=== PATIENT | male | born 1985 | race Caucasian/White ===

== ENCOUNTER 2019-06-19 09:23 | Day surgery (SDC) | payer SELFPAY ==
[2019-06-19] MEDS ORDERED: ACETAMINOPHEN 325 MG TABLET PO ONE (09:39)
[2019-06-19] MEDS ORDERED: RINGERS LACTATED IV ONE (09:39)
--- NOTE | 2019-06-19 09:41 | ER Document Report ---
ED Medical Screen (RME) - General Chief Complaint: Knee Pain Stated Complaint: KNEE PAIN Time Seen by Provider: 06/19/19 09:39 Primary Care Provider: ROSIBEL GIBBONS MD [Primary Care Provider] - Follow up as needed Mode of Arrival: Wheelchair Information source: Patient Notes: 33-year-old male presented to ED for complaint of right groin pain times a month. He states it is been very sore and inflamed for about a month and then this morning he woke up with his right knee very large red swollen and hot to the touch. He states he has not done anything to injure himself. He does have tachycardia with hypotension. He does appear to have a septic joint. Blood work and x-ray have been ordered. I have greeted and performed a rapid initial assessment of this patient. A comprehensive ED assessment and evaluation of the patient, analysis of test results and completion of medical decision making process will be conducted by an additional ED providers. TRAVEL OUTSIDE OF THE [place] IN LAST 30 DAYS: No - Related Data Allergies/Adverse Reactions: amoxicillin trihydrate [From Augmentin] Allergy (Verified 03/23/15 00:27) Potassium Clavulanate * [From Augmentin] Allergy (Verified 03/23/15 00:27) Past Medical History - Social History Chew tobacco use (# tins/day): No Frequency of alcohol use: None Drug Abuse: None Traumatic Medical History: Reports: Hx Fractures - hand Past Surgical History: Reports: Hx Myringotomy - child root, Hx Orthopedic Surgery - Immunizations Hx Diphtheria, Pertussis, Tetanus Vaccination: Yes Physical Exam - Vital signs Vitals: Temp Pulse Resp BP Pulse Ox 99.7 F 123 H 18 93/60 L 100 06/19/19 09:27 06/19/19 09:27 06/19/19 09:27 06/19/19 09:27 06/19/19 09:27 Course - Vital Signs Vital signs: Temp Pulse Resp BP Pulse Ox 99.7 F 123 H 18 93/60 L 100 06/19/19 09:27 06/19/19 09:27 06/19/19 09:27 06/19/19 09:27 06/19/19 09:27 Doctor's Discharge - Discharge Referrals: ROSIBEL GIBBONS MD [Primary Care Provider] - Follow up as needed
--- NOTE | 2019-06-19 10:07 | ER Document Report ---
ED Extremity Problem, Lower - General Chief Complaint: Knee Pain Stated Complaint: KNEE PAIN Time Seen by Provider: 06/19/19 09:39 Primary Care Provider: ROSIBEL GIBBONS MD [PEDIATRICS] - Follow up as needed SHANICE CHAMPION MD [ACTIVE PROVISIONAL STAFF] - Follow up as needed (CALL FOR FOLLOW UP APPOINTMENT) Mode of Arrival: Wheelchair TRAVEL OUTSIDE OF THE [place] IN LAST 30 DAYS: No - HPI Notes: This is a 33-year-old gentleman who presents today with a complaint of right knee pain and swelling that started this morning. Patient denies any trauma. He states he was fine yesterday, woke up this morning he noticed his right knee was swollen. He denies drug use. Pain is worse with bending of his knee. He denies any recent illness. He states he felt like he had a fever this morning. Describes symptoms as moderate. - Related Data Allergies/Adverse Reactions: amoxicillin trihydrate [From Augmentin] Allergy (Verified 03/23/15 00:27) Potassium Clavulanate * [From Augmentin] Allergy (Verified 03/23/15 00:27) Past Medical History - General Information source: Patient - Social History Smoking Status: Current Every Day Smoker Chew tobacco use (# tins/day): No Frequency of alcohol use: None Drug Abuse: None Family History: Reviewed & Not Pertinent Patient has suicidal ideation: No Patient has homicidal ideation: No Traumatic Medical History: Reports: Hx Fractures - hand Past Surgical History: Reports: Hx Myringotomy - child root, Hx Orthopedic Surgery - Immunizations Hx Diphtheria, Pertussis, Tetanus Vaccination: Yes Review of Systems - Review of Systems Constitutional: Fever Cardiovascular: denies: Chest pain, Palpitations Respiratory: denies: Cough, Short of breath Gastrointestinal: denies: Abdominal pain Musculoskeletal: Joint pain, Joint swelling -: Yes All other systems reviewed and negative Physical Exam - Vital signs Vitals: Temp Pulse Resp BP Pulse Ox 99.7 F 123 H 18 93/60 L 100 06/19/19 09:27 06/19/19 09:27 06/19/19 09:27 06/19/19 09:27 06/19/19 09:27 - General General appearance: Appears well, Alert - Respiratory Respiratory status: No respiratory distress Chest status: Nontender Breath sounds: Normal Chest palpation: Normal - Cardiovascular Rhythm: Regular Heart sounds: Normal auscultation Murmur: No - Abdominal Inspection: Normal Distension: No distension Bowel sounds: Normal Tenderness: Nontender Organomegaly: No organomegaly - Extremities General upper extremity: Normal inspection, Nontender, Normal color, Normal ROM, Normal temperature General lower extremity: No: Ramana's sign Knee: Tender - There is significant swelling, erythema and effusion of the right knee. It is warm to touch. There is pain with bending of the knee. Normal distal neurovascular exam of the right lower extremity. - Neurological Neuro grossly intact: Yes Cognition: Normal Orientation: AAOx4 Tracy Coma Scale Eye Opening: Spontaneous Tracy Coma Scale Verbal: Oriented Tracy Coma Scale Motor: Obeys Commands Tracy Coma Scale Total: 15 Speech: Normal Motor strength normal: LUE, RUE, LLE, RLE Sensory: Normal - Psychological Associated symptoms: Normal affect, Normal mood Course - Re-evaluation Re-evalutation: 06/19/19 10:09 Clinically patient is concerning for right knee septic arthritis versus cellulitis of the right knee. Differential diagnosis includes prepatellar bursitis. Patient was hypotensive and tachycardic so need to rule out early septicemia. 06/19/19 11:31 Right knee arthrocentesis done. I got very minimal bloody fluid. However, have a high clinical suspicion for septic arthritis. Will empirically start vancomycin. 06/19/19 12:13 Patient's care discussed with Dr. Champion. Will take patient to the OR. 06/19/19 13:02 - Vital Signs Vital signs: Temp Pulse Resp BP Pulse Ox 99.8 F 92 18 99/55 L 100 06/19/19 11:50 06/19/19 17:40 06/19/19 17:40 06/19/19 17:40 06/19/19 17:40 - Laboratory Result Diagrams: 06/19/19 10:00 06/19/19 10:00 Laboratory results interpreted by me: 06/19/19 06/19/19 10:00 10:00 WBC 18.9 H RBC 4.30 L Hgb 13.1 L Seg Neuts % (Manual) 87 H Lymphocytes % (Manual) 4 L Abs Neuts (Manual) 17.4 H Sodium 136.8 L Procedures - Joint Aspiration Right Knee Time completed: 11:31 Consent obtained: Yes Joint aspiration pre-procedure: Sterile PPE donned, Betadine prep applied, Sterile drapes applied Anesthetic type: 1% Lidocaine Needle size: 18 Amount/type of drainage: Small bloody drainage. Difficult to obtain. Number of attempts: 2 Complications: No Discharge - Discharge Clinical Impression: Prepatellar bursitis of right knee Cellulitis Qualifiers: Site of cellulitis: extremity Site of cellulitis of extremity: lower extremity Laterality: right Qualified Code(s): L03.115 - Cellulitis of right lower limb Condition: Stable Disposition: ADMITTED INPATIENT Admitting Provider: Dr. Champion - Orthopedics Unit Admitted: OR Additional Instructions: NORMAL DIET NORMAL ACTIVITY MAY SHOWER MAY CHANGE DRESSING TAKE DOWN DRESSING, SHOWER, THEN REAPPLY DRESSING WATCH FOR SIGNS OF INFECTION: FEVER OVER 101, FOUL SMELLING DRAINAGE, REDNESS TAKE FULL COURSE OF ANTIBIOTICS Forms: Discharge POC-Adult, Return to Work Referrals: ROSIBEL GIBBONS MD [PEDIATRICS] - Follow up as needed SHANICE CHAMPION MD [ACTIVE PROVISIONAL STAFF] - Follow up as needed (CALL FOR FOLLOW UP APPOINTMENT)
[2019-06-19] MEDS ORDERED: LIDOCAINE 2% INJ-PF (20 MG/ML) 10 ML AMPUL NEB ONE (10:10)
[2019-06-19 10:20] LABS: VENOUS BLOOD BASE EXCESS -2.3 mmol/L; VENOUS BLOOD PCO2 41.6 mmHg (35-63); VENOUS BLOOD PH 7.36 (7.30-7.42)
[2019-06-19 10:22] LABS: HEMATOCRIT 39.3 % (37.9-51.0); HEMOGLOBIN 13.1 g/dL (13.5-17.0); MEAN CORPUSCULAR HEMOGLOBIN 30.4 pg (27.0-33.4); MEAN CORPUSCULAR HGB CONC 33.3 g/dL (32.0-36.0); MEAN CORPUSCULAR VOLUME 91 fl (80-97); PLATELET COUNT 316 10^3/uL (150-450); RED CELL DISTRIBUTION WIDTH 12.9 % (11.5-14.0); WHITE BLOOD COUNT 18.9 10^3/uL (4.0-10.5)
[2019-06-19 10:31] LABS: INTERNATIONAL RATION (INR) 1.11; PROTHROMBIN TIME 14.3 SEC (11.4-15.4)
[2019-06-19 10:35] LABS: APPEARANCE,URINE CLEAR; BILIRUBIN,URINE NEGATIVE (NEGATIVE); COLOR,URINE YELLOW; GLUCOSE, URINE NEGATIVE (NEGATIVE); KETONES,URINE NEGATIVE (NEGATIVE); LEUKOCYTE ESTERASE,URINE NEGATIVE (NEGATIVE); NITRITE,URINE NEGATIVE (NEGATIVE); PROTEIN,URINE NEGATIVE (NEGATIVE); URINE SPECIFIC GRAVITY 1.015; UROBILINOGEN,URINE NEGATIVE mg/dL (<2.0)
[2019-06-19 10:44] LABS: ALBUMIN 4.3 g/dL (3.5-5.0); ALKALINE PHOSPHATASE 73 U/L (38-126); ANION GAP 9 (5-19); ASPARTATE AMINO TRANSFERASE 24 U/L (17-59); BILIRUBIN,DIRECT 0.2 mg/dL (0.0-0.4); BLOOD UREA NITROGEN 17 mg/dL (7-20); CALCIUM 9.5 mg/dL (8.4-10.2); CARBON DIOXIDE 25 mmol/L (22-30); CHLORIDE 103 mmol/L (98-107); GLUCOSE 101 mg/dL (75-110); POTASSIUM 3.6 mmol/L (3.6-5.0); TOTAL PROTEIN 7.2 g/dL (6.3-8.2)
[2019-06-19 10:49] LABS: ABSOLUTE LYMPHOCYTES# (MANUAL) 0.8 10^3/uL (0.5-4.7); ABSOLUTE MONOCYTES # (MANUAL) 0.8 10^3/uL (0.1-1.4); BAND NEUTROPHILS % (MANUAL) 5 % (3-5); BASOPHILS % (MANUAL) 0 % (0-2); EOSINOPHILS % (MANUAL) 0 % (0-6); LYMPHOCYTES % (MANUAL) 4 % (13-45); MONOCYTES % (MANUAL) 4 % (3-13); SEGMENTED NEUTROPHILS % (MAN) 87 % (42-78); TOTAL CELLS COUNTED 100
[2019-06-19 10:51] LABS: PLATELET COMMENT ADEQUATE
--- NOTE | 2019-06-19 11:07 | RADIOLOGY REPORT (SQ) ---
EXAM DESCRIPTION: KNEE RIGHT 4 VIEWS COMPLETED DATE/TIME: 06/19/2019 10:58 am REASON FOR STUDY: inflamed red swollen knee COMPARISON: None. NUMBER OF VIEWS: Four views. TECHNIQUE: AP, lateral, and both oblique radiographic images acquired of the right knee. LIMITATIONS: None. FINDINGS: MINERALIZATION: Normal. BONES: No acute fracture or dislocation. No worrisome bone lesions. JOINT: No effusion. SOFT TISSUES: There is soft tissue swelling overlying the patella. OTHER: No other significant finding. IMPRESSION: Findings are most consistent with prepatellar bursitis with soft tissue swelling overlyi ng the patella. No joint effusion. No fracture. TECHNICAL DOCUMENTATION: JOB ID: [id number] [employer]- All Rights Reserved Reading location - IP/workstation name: [email or web address]
[2019-06-19] MEDS ORDERED: VANCOMYCIN HCL INJ 1000 MG VIAL IV ONE (11:28)
[2019-06-19] MEDS ORDERED: MORPHINE SULFATE 10 MG/ML INJ IV ONE (11:42)
[2019-06-19] MEDS ORDERED: NORMAL SALINE 1000 ML 1,000 ML IV ONE ×2 (12:07→13:00)
--- NOTE | 2019-06-19 14:51 | PDOC H&P ---
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 He presented to the emergency room today complaining of the acute onset of right knee pain and swelling. The patient denies a history of trauma. The patient does not recall any type of abrasion to his knee. He states that he awoke this morning around 4 AM with worsening pain in his knee. He states that he has not previously experienced similar swelling of his knee. Past Medical History Cardiac Medical History: Denies: None, Atrial Fibrillation, Congestive Heart Failure, Coronary Artery Disease, DVT, Myocardial Infarction, Hyperlipidema, Hypertension, Peripheral Vascular Disease, Pulmonary Embolism, Heart Murmur, Other Pulmonary Medical History: Denies: None, Asthma, Bronchitis, Chronic Obstructive Pulmonary Disease (COPD), Intubation, Pneumonia, Respiratory Failure, Sleep Apnea, Tuberculosis, Other EENT Medical History: Denies: None, Cataracts, Eyes, Ears, Nose, Throat, Other Neurological Medical History: Denies: None, Hemorrhagic CVA, Ischemic CVA, Migraine, Multiple Sclerosis, Seizures, Other Endocrine Medical History: Denies: None, Diabetes Mellitus Type 1, Diabetes Mellitus Type 2, Gestational Diabetes, Hyperthyroidism, Hypothyroidism, Obesity, Other Renal/ Medical History: Denies: None, Chronic Kidney Disease, End Stage Renal Disease, Nephrolithiasis, Other Malignancy Medical History: Denies: None, Bone Cancer, Brain Cancer, Breast Cancer, Cervical Cancer, Co lorectal Cancer, Leukemia, Liver Cancer, Lung Cancer, Lymphoma, Ovarian Cancer, Pancreatic Cancer, Renal (Kidney) Cancer, Skin Cancer, Other Musculoskeltal Medical History: Denies: None, Arthritis, Fibromyalgia, Gout, Other Skin Medical History: Denies: None, Eczema, Psoriasis, Other Psychiatric Medical History: Reports: Tobacco Dependency Traumatic Medical History: Reports: Other - History of hand fracture Hematology: Denies: None, Anemia, Hemophilia, Sickle Cell Disease, Bleeding Tendencies, Heparin Induced Thrombocytopenia, Neutropenia, Other Infectious Medical History: Denies: None, Clostridium Difficile, Hepatitis B, Hepatitis C, HIV, Methicillin-Resistant Staph Aureus, Vancomycin-Resistant Enterococci, Other Past Surgical History Past Surgical History: Reports: Orthopedic Surgery Social History Information Source: Patient Lives with: Spouse/Significant other Smoking Status: Current Every Day Smoker Frequency of Alcohol Use: Occasional Hx Recreational Drug Use: No Hx Prescription Drug Abuse: No Family History Family History: Reviewed & Not Pertinent Parental Family History Reviewed: Yes Children Family History Reviewed: NA Sibling(s) Family History Reviewed.: Yes Medication/Allergy Home Medications: No Home Medications 06/19/19 Allergies/Adverse Reactions: amoxicillin trihydrate [From Augmentin] Allergy (Verified 03/23/15 00:27) Potassium Clavulanate * [From Augmentin] Allergy (Verified 03/23/15 00:27) Review of Systems All systems: reviewed and no additional remarkable complaints except as stated Constitutional: PRESENT: chills Eyes: ABSENT: visual disturbances Ears: ABSENT: hearing changes Cardiovascular: ABSENT: chest pain, dyspnea on exertion, edema, orthropnea, palpitations Respiratory: ABSENT: cough, hemoptysis Gastrointestinal: ABSENT: abdominal pain, constipation, diarrhea, hematemesis, hematochezia, nausea, vomiting Genitourinary: ABSENT: dysuria, hematuria Musculoskeletal: PRESENT: as per HPI. ABSENT: joint swelling Integumentary: ABSENT: rash, wounds Neurological: ABSENT: abnormal gait, abnormal speech, confusion, dizziness, focal weakness, syncope Psychiatric: ABSENT: anxiety, depression, homidical ideation, suicidal ideation Endocrine: ABSENT: cold intolerance, heat intolerance, polydipsia, polyuria Hematologic/Lymphatic: ABSENT: easy bleeding, easy bruising Physical Exam Vital Signs: Temp Pulse Resp BP Pulse Ox 99.8 F 102 H 18 99/55 L 98 06/19/19 11:50 06/19/19 11:50 06/19/19 09:27 06/19/19 11:50 06/19/19 11:50 Intake & Output 06/18/19 06/19/19 06/20/19 06:59 06:59 06:59 Intake Total 2770 Balance 2770 Weight 58.967 kg General appearance: PRESENT: no acute distress, well-developed, well-nourished Head exam: PRESENT: atraumatic, normocephalic Eye exam: PRESENT: conjunctiva pink, EOMI, PERRLA. ABSENT: scleral icterus Ear exam: PRESENT: normal external ear exam Mouth exam: PRESENT: moist, tongue midline Throat exam: ABSENT: post pharyngeal erythema, tonsillar erythema, tonsillar exudate, tonsillogmegaly, other Neck exam: ABSENT: carotid bruit, full ROM, JVD, lymphadenopathy, meningismus, tenderness, thyromegaly, tracheal deviation, tracheostomy, other Respiratory exam: PRESENT: clear to auscultation toby. ABSENT: rales, rhonchi, wheezes Cardiovascular exam: PRESENT: RRR. ABSENT: diastolic murmur, rubs, systolic murmur Pulses: PRESENT: normal dorsalis pedis pul GI/Abdominal exam: PRESENT: normal bowel sounds, soft. ABSENT: distended, guarding, mass, organolmegaly, rebound, tenderness Rectal exam: PRESENT: deferred Extremities exam: PRESENT: full ROM. ABSENT: calf tenderness, clubbing, pedal edema Musculoskeletal exam: PRESENT: other - Examination of the right knee demonstrates significant prepatellar swelling. The patient is able to fully extend his knee. The patient experiences only anterior knee discomfort with knee flexion. There is normal motion of the hip, ankle, and foot. 2+ DP and PT pulses. Sensation is normal. Neurological exam: PRESENT: alert, awake, oriented to person, oriented to place, oriented to time, oriented to situation, CN II-XII grossly intact. ABSENT: altered, reflexes normal, abnormal gait, ataxia, motor sensory deficit, normal gait, aphasic, other Psychiatric exam: PRESENT: appropriate affect, normal mood Skin exam: PRESENT: warm Results Laboratory Results: 06/19/19 10:06/19/19 10:00 06/19/19 06/19/19 06/19/19 10:00 10:00 10:00 WBC 18.9 H RBC 4.30 L Hgb 13.1 L Hct 39.3 MCV 91 MCH 30.4 MCHC 33.3 RDW 12.9 Plt Count 316 Seg Neutrophils % Not Reportable VBG pH VBG pCO2 VBG HCO3 VBG Base Excess Sodium 136.8 L Potassium 3.6 Chloride 103 Carbon Dioxide 25 Anion Gap 9 BUN 17 Creatinine 0.90 Est GFR ( Amer) > 60 Glucose 101 Lactic Acid 1.3 Calcium 9.5 Total Bilirubin 1.0 AST 24 Alkaline Phosphatase 73 Total Protein 7.2 Albumin 4.3 Urine Color Urine Appearance Urine pH Ur Specific [place] Urine Protein Urine Glucose (UA) Urine Ketones Urine Blood Urine Nitrite Ur Leukocyte Esterase Urine WBC (Auto) Urine RBC (Auto) Fluid Type Fluid Source Fluid Color Fluid Appearance Fluid Viscosity Fluid WBC Fluid RBC 06/19/19 06/19/19 06/19/19 10:00 10:00 10:10 WBC RBC Hgb Hct MCV MCH MCHC RDW Plt Count Seg Neutrophils % VBG pH 7.36 VBG pCO2 41.6 VBG HCO3 23.0 VBG Base Excess -2.3 Sodium Potassium Chloride Carbon Dioxide Anion Gap BUN Creatinine Est GFR ( Amer) Glucose Lactic Acid Calcium Total Bilirubin AST Alkaline Phosphatase Total Protein Albumin Urine Color YELLOW Urine Appearance CLEAR Urine pH 5.0 Ur Specific [place] 1.015 Urine Protein NEGATIVE Urine Glucose (UA) NEGATIVE Urine Ketones NEGATIVE Urine Blood NEGATIVE Urine Nitrite NEGATIVE Ur Leukocyte Esterase NEGATIVE Urine WBC (Auto) 0 Urine RBC (Auto) 0 Fluid Type Cancelled Fluid Source Fluid Color Fluid Appearance Fluid Viscosity Fluid WBC Fluid RBC 06/19/19 11:27 WBC RBC Hgb Hct MCV MCH MCHC RDW Plt Count Seg Neutrophils % VBG pH VBG pCO2 VBG HCO3 VBG Base Excess Sodium Potassium Chloride Carbon Dioxide Anion Gap BUN Creatinine Est GFR ( Amer) Glucose Lactic Acid Calcium Total Bilirubin AST Alkaline Phosphatase Total Protein Albumin Urine Color Urine Appearance Urine pH Ur Specific [place] Urine Protein Urine Glucose (UA) Urine Ketones Urine Blood Urine Nitrite Ur Leukocyte Esterase Urine WBC (Auto) Urine RBC (Auto) Fluid Type Cancelled Fluid Source Cancelled Fluid Color Cancelled Fluid Appearance Cancelled Fluid Viscosity Cancelled Fluid WBC Cancelled Fluid RBC Cancelled Impressions: Knee X-Ray 06/19/19 09:40 IMPRESSION: Findings are most consistent with prepatellar bursitis with soft tissue swelling overlying the patella. No joint effusion. No fracture. Assessment & Plan - Diagnosis (1) Skin infection of right knee Is this a current diagnosis for this admission?: Yes Plan: Clinical examination along with radiologic examination is consistent with suppurative prepatellar bursitis of the right knee. Patient is severely uncomfortable and does have an elevated white blood cell count. I have recommended operative incision and debridement. We will first attempt via an arthroscopic approach. Risks, benefits, and alternatives were discussed with the patient and his fiance. Risks include the risk of with anesthesia, the risk of persistent infection, the risk of injury to nerves and vessels, the risk of knee stiffness, and the possible need for additional surgical procedures. An opportunity for questions was provided. All questions were answered to the patient's satisfaction. The patient expressed understanding and wishes to proceed. (2) Prepatellar bursitis of right knee Is this a current diagnosis for this admission?: Yes - Time Time Spent: 50 to 70 Minutes Critical Time spent with patient: 35 or more minutes Anticipated discharge: Home Within: within 24 hours - Plan Summary Plan Summary: Clinical and radiologic examination are consistent with suppurative prepatellar bursitis of the right knee. The patient is significantly uncomfortable and has an elevated white blood cell count. I have recommended operative incision and debridement. Risks, benefits, and alternatives were discussed with the patient and his fiance. Risks include the risk of with anesthesia, the risk of persistent infection, the risk of injury to nerves and vessels, the risk of knee stiffness, and the potential need for additional surgical procedures. An opportunity for questions was provided. All questions were answered to the patient's satisfaction. The patient expressed understanding and wishes to proceed.
[2019-06-19] MEDS ORDERED: BUPIVACAINE HCL 0.5 % INJ/PF 30 ML SDV ONE (15:02)
[2019-06-19] MEDS ORDERED: KETOROLAC TROMETHAMINE 60 MG/2 ML SDV ONE (15:11)
[2019-06-19] MEDS ORDERED: DEXAMETHASONE SOD PHOSPHATE INJ 4 MG/1 ML VIAL ONE (15:11)
[2019-06-19] MEDS ORDERED: ONDANSETRON HCL INJ/PF 4 MG/2 ML SDV ONE (15:11)
[2019-06-19] MEDS ORDERED: MIDAZOLAM 2 MG/2 ML INJ ONE (15:11)
[2019-06-19] MEDS ORDERED: FENTANYL CITRATE INJ/PF 100 MCG/2 ML AMPUL ONE (15:11)
[2019-06-19] MEDS ORDERED: PROPOFOL INJ 200 MG/20 ML VIAL IV ONE ×2 (15:12→16:47)
[2019-06-19] MEDS ORDERED: FENTANYL CITRATE INJ/PF 100 MCG/2 ML AMPUL IV PRN ×3 (15:54)
[2019-06-19] MEDS ORDERED: PROMETHAZINE HCL INJ 25 MG/1 ML VIAL IV PRN (15:54)
[2019-06-19] MEDS ORDERED: MEPERIDINE HCL/PF INJ 25 MG/1 ML DISP.SYRIN IV PRN (15:54)
[2019-06-19] MEDS ORDERED: OXYCODONE-ACETAMINOPHEN 5-325 MG TABLET PO PRN ×3 (15:54→17:26)
[2019-06-19] MEDS ORDERED: ONDANSETRON HCL INJ/PF 4 MG/2 ML SDV IV PRN ×2 (15:54→17:26)
[2019-06-19] MEDS ORDERED: DIPHENHYDRAMINE HCL 50 MG/ML VIAL IV PRN (15:54)
[2019-06-19] MEDS ORDERED: MORPHINE SULFATE 10 MG/ML INJ IV PRN (15:54)
--- NOTE | 2019-06-19 16:41 | Operative Report ---
Operative Report DATE OF SURGERY: 06/19/19 PREOPERATIVE DIAGNOSIS: Right knee infectious prepatellar bursitis POSTOPERATIVE DIAGNOSIS: Right knee infectious prepatellar bursitis OPERATION: Right knee arthroscopy with debridement of prepatellar bursa SURGEON: SHANICE TEIXEIRA ANESTHESIA: GA COMPLICATIONS: None ESTIMATED BLOOD LOSS: Minimal PROCEDURE: Indications for procedure: The patient is a 33-year-old man who presented to the emergency room department today with infectious prepatellar bursitis of the right knee. Description of procedure: The patient had already been administered vancomycin in the emergency department prior to consultation. The patient was taken to the operating room where general anesthesia was administered. All bony prominences were padded. A tourniquet was placed proximally on the right thigh but not inflated. The right lower extremity was sterilely prepped with ChloraPrep and draped in standard fashion. The leg was exsanguinated with a Tano bandage and the tourniquet inflated to 280 mmHg. Standard medial and lateral arthroscopic portals were made. A sharp incision was made through the skin only with blunt dissection with a hemostat into the prepatellar bursa. Purulent fluid was expressed upon entrance of the prepatellar bursa. Wound cultures were taken. Arthroscope was placed into the lateral arthroscopic portal with a shaver in the medial portal. Complete bursectomy of the prepatellar bursa was performed. In addition, 9 L of arthroscopic fluid were used to irrigate and cleanse the prepatellar bursa. At the conclusion of the procedure the arthroscopic portals were left open specifically to allow egress of fluids. 0.5% Marcaine was injected into the prepatellar bursa for postoperative analgesia. A bulky sterile dressing was applied. The patient tolerated the procedure well without complication and was brought to recovery room in stable condition.
[2019-06-19] MEDS ORDERED: OXYCODONE-ACETAMINOPHEN 5-325 MG TABLET ONE (17:47)
[2019-06-19 19:05] VITALS: BP 105/59
--- NOTE | 2019-06-19 19:58 | EKG REPORT ---
SEVERITY:- OTHERWISE NORMAL ECG - SINUS TACHYCARDIA : Confirmed by: Courtney Pacheco MD 19-Jun-2019 19:57:30
== END 2019-06-19 19:00 | disposition home or self-care (01) ==
LOC: ER 09:23 → OROUT 12:12 → ER 19:00 → OROUT 19:00
PROVIDERS: ATTEND Emergency Medicine
DX: M71.161 Other infective bursitis, right knee (principal); F17.210 Nicotine dependence, cigarettes, uncomplicated
CPT/HCPCS: 93005; 94640; 99285; 96360; 96361; 36415; 87040; 87086; 87070 ×2; 87205; 85025; 85610; 87075; 87077; 80053; 81001; 87186; 82803; 83605; 73564; 93010; 01400; 27340; 29870; J2250; J3490 ×2; J1100; J1885; J3010; J2405; J7030; J7120; J2704; J3370

== ENCOUNTER 2019-06-22 21:31 | Inpatient (IN) | payer SELFPAY ==
--- NOTE | 2019-06-22 21:47 | ER Document Report ---
ED Medical Screen (RME) - General Chief Complaint: Leg Pain Stated Complaint: POST SURGICAL COMPLICATION Time Seen by Provider: 06/22/19 21:42 Mode of Arrival: Wheelchair Information source: Patient Notes: 33-year-old male presented to ED for pain redness and swelling to the right knee. He states he had arthroscopic surgery on Monday by Dr. Champion the orthopedic surgeon and he had a positive culture for Streptococcus. The patient is on Cipro and clindamycin. The culture did come back susceptible to clindamycin and Levaquin and multiple other antibiotics. Patient states after the surgery it was not red and swollen but now it is and it is draining serosanguineous fluid. He states the actual knee was red but he now has streaks going up his thigh. Patient is alert oriented respirations regular and unlabored and speaking in full sentences. I have greeted and performed a rapid initial assessment of this patient. A comprehensive ED assessment and evaluation of the patient, analysis of test results and completion of medical decision making process will be conducted by an additional ED providers. TRAVEL OUTSIDE OF THE [place] IN LAST 30 DAYS: No - Related Data Allergies/Adverse Reactions: amoxicillin trihydrate [From Augmentin] Allergy (Verified 03/23/15 00:27) Potassium Clavulanate * [From Augmentin] Allergy (Verified 03/23/15 00:27) Past Medical History - Past Medical History Cardiac Medical History: Denies: Hx Atrial Fibrillation, Hx Congestive Heart Failure, Hx Coronary Artery Disease, Hx DVT, Hx Heart Attack, Hx Hypercholesterolemia, Hx Hypertension, Hx Peripheral Vascular Disease, Hx Pulmonary Embolism, Hx Heart Murmur Pulmonary Medical History: Denies: Hx Asthma, Hx Bronchitis, Hx COPD, Hx Pneumonia, Hx Intubation, Hx Respiratory Failure, Hx Sleep Apnea, Hx Tuberculosis Neurological Medical History: Denies: Hx Migraine, Hx Seizures Endocrine Medical History: Denies: Hx Diabetes Mellitus Type 1, Hx Diabetes Mellitus Type 2, Hx Hyperthyroidism, Hx Hypothyroidism Renal/ Medical History: Denies: Hx End Stage Renal Disease Malignancy Medical History: Denies Hx Bone Cancer, Denies Hx Brain Cancer, Denies Hx Colorectal Cancer, Denies Hx Leukemia, Denies Hx Liver Cancer, Denies Hx Lung Cancer, Denies Hx Lymphoma, Denies Hx Pancreatic Cancer, Denies Hx Renal (Kidney) Cancer, Denies Hx Skin Cancer Musculoskeltal Medical History: Denies Hx Arthritis, Denies Hx Fibromyalgia, Denies Hx Gout Skin Medical History: Denies Hx Eczema, Denies Hx Psoriasis Traumatic Medical History: Reports: Hx Fractures - hand Infectious Medical History: Denies: Hx C-Diff, Hx HIV, Hx MRSA, Hx VRE Past Surgical History: Reports: Hx Myringotomy - child root, Hx Orthopedic Surgery - Immunizations Hx Diphtheria, Pertussis, Tetanus Vaccination: Yes Physical Exam - Vital signs Vitals: Temp Pulse Resp BP Pulse Ox 98.5 F 99 16 132/107 H 100 06/22/19 21:35 06/22/19 21:35 06/22/19 21:35 06/22/19 21:35 06/22/19 21:35 Course - Vital Signs Vital signs: Temp Pulse Resp BP Pulse Ox 98.5 F 99 16 132/107 H 100 06/22/19 21:35 06/22/19 21:35 06/22/19 21:35 06/22/19 21:35 06/22/19 21:35
[2019-06-22] MEDS ORDERED: NORMAL SALINE 1000 ML 1,000 ML IV ONE (21:49)
[2019-06-22 22:27] LABS: ABSOLUTE EOSINOPHILS # (AUTO) 0.4 10^3/uL (0.0-0.6); ABSOLUTE LYMPHOCYTES (AUTO) 1.8 10^3/uL (0.5-4.7); ABSOLUTE NEUT (AUTO) 8.6 10^3/uL (1.7-8.2); BASOPHILS % (AUTO) 0.3 % (0-2); EOSINOPHILS % (AUTO) 3.8 % (0-6); HEMATOCRIT 34.5 % (37.9-51.0); HEMOGLOBIN 11.4 g/dL (13.5-17.0); LYMPHOCYTES % (AUTO) 14.9 % (13-45); MEAN CORPUSCULAR HEMOGLOBIN 30.5 pg (27.0-33.4); MEAN CORPUSCULAR HGB CONC 33.2 g/dL (32.0-36.0); MEAN CORPUSCULAR VOLUME 92 fl (80-97); MONOCYTES % (AUTO) 8.1 % (3-13); PLATELET COUNT 344 10^3/uL (150-450); RED BLOOD COUNT 3.75 10^6/uL (4.35-5.55); RED CELL DISTRIBUTION WIDTH 13.2 % (11.5-14.0); SEGMENTED NEUTROPHILS % (AUTO) 72.9 % (42-78); TOTAL CELLS COUNTED % (AUTO) 100 %; WHITE BLOOD COUNT 11.8 10^3/uL (4.0-10.5)
[2019-06-22 22:48] LABS: ALBUMIN 3.5 g/dL (3.5-5.0); ALKALINE PHOSPHATASE 85 U/L (38-126); ANION GAP 10 (5-19); ASPARTATE AMINO TRANSFERASE 21 U/L (17-59); BILIRUBIN,DIRECT 0.2 mg/dL (0.0-0.4); BILIRUBIN,TOTAL 0.7 mg/dL (0.2-1.3); BLOOD UREA NITROGEN 10 mg/dL (7-20); CARBON DIOXIDE 29 mmol/L (22-30); CHLORIDE 101 mmol/L (98-107); GLUCOSE 85 mg/dL (75-110); POTASSIUM 3.5 mmol/L (3.6-5.0); TOTAL PROTEIN 6.5 g/dL (6.3-8.2)
--- NOTE | 2019-06-22 23:18 | ER Document Report ---
ED General - General Chief Complaint: Knee Pain Stated Complaint: POST SURGICAL COMPLICATION Time Seen by Provider: 06/22/19 21:42 Mode of Arrival: Wheelchair Information source: Patient Notes: 33-year-old male presents emergency department with complaints of right knee pain swelling warmth erythema. Reports he had surgery on his knee Monday. He was placed on clindamycin and Cipro. Reports last night the knee started swelling more with warmth, drainage from incision site, erythemia increased with linear streaks going up his thigh. He denies fever vomiting diarrhea. TRAVEL OUTSIDE OF THE [place] IN LAST 30 DAYS: No - HPI Onset: Yesterday Onset/Duration: Persistent Quality of pain: Achy Associated symptoms: None Exacerbated by: Movement Relieved by: Denies Similar symptoms previously: Yes Recently seen / treated by doctor: Yes - Related Data Allergies/Adverse Reactions: amoxicillin trihydrate [From Augmentin] Allergy (Verified 03/23/15 00:27) Potassium Clavulanate * [From Augmentin] Allergy (Verified 03/23/15 00:27) Past Medical History - General Information source: Patient - Social History Smoking Status: Current Every Day Smoker Chew tobacco use (# tins/day): No Frequency of alcohol use: None Drug Abuse: None Lives with: Family Family History: Reviewed & Not Pertinent Patient has suicidal ideation: No Patient has homicidal ideation: No - Past Medical History Cardiac Medical History: Denies: Hx Atrial Fibrillation, Hx Congestive Heart Failure, Hx Coronary Ar chyna Disease, Hx DVT, Hx Heart Attack, Hx Hypercholesterolemia, Hx Hypertension, Hx Peripheral Vascular Disease, Hx Pulmonary Embolism, Hx Heart Murmur Pulmonary Medical History: Denies: Hx Asthma, Hx Bronchitis, Hx COPD, Hx Pneumonia, Hx Intubation, Hx Respiratory Failure, Hx Sleep Apnea, Hx Tuberculosis Neurological Medical History: Denies: Hx Migraine, Hx Seizures Endocrine Medical History: Denies: Hx Diabetes Mellitus Type 1, Hx Diabetes Mellitus Type 2, Hx Hyperthyroidism, Hx Hypothyroidism Renal/ Medical History: Denies: Hx End Stage Renal Disease Malignancy Medical History: Denies Hx Bone Cancer, Denies Hx Brain Cancer, Denies Hx Colorectal Cancer, Denies Hx Leukemia, Denies Hx Liver Cancer, Denies Hx Lung Cancer, Denies Hx Lymphoma, Denies Hx Pancreatic Cancer, Denies Hx Renal (Kidney) Cancer, Denies Hx Skin Cancer Musculoskeletal Medical History: Denies Hx Arthritis, Denies Hx Fibromyalgia, Denies Hx Gout Skin Medical History: Denies Hx Eczema, Denies Hx Psoriasis Traumatic Medical History: Reports: Hx Fractures - hand Infectious Medical History: Denies: Hx C-Diff, Hx HIV, Hx MRSA, Hx VRE Past Surgical History: Reports: Hx Myringotomy - child root, Hx Orthopedic Surgery - Immunizations Hx Diphtheria, Pertussis, Tetanus Vaccination: Yes Review of Systems - Review of Systems Notes: Review HPI for review of systems., All other systems negative Physical Exam - Vital signs Vitals: Temp Pulse Resp BP Pulse Ox 98.5 F 99 16 132/107 H 100 06/22/19 21:35 06/22/19 21:35 06/22/19 21:35 06/22/19 21:35 06/22/19 21:35 - General General appearance: Alert, Anxious In distress: Mild - Right knee tender to palpate - HEENT Head: Normocephalic Eyes: Normal Conjunctiva: Normal Neck: Normal, Supple - Respiratory Respiratory status: No respiratory distress Breath sounds: Normal - Cardiovascular Rhythm: Regular - Extremities General upper extremity: Normal ROM General lower extremity: Normal ROM Knee: Tender, Pain with ROM - Neurological Neuro grossly intact: Yes Cognition: Normal Orientation: AAOx4 Michelle Coma Scale Eye Opening: Spontaneous Michelle Coma Scale Verbal: Oriented [place] Coma Scale Motor: Obeys Commands Michelle Coma Scale Total: 15 Speech: Normal - Psychological Associated symptoms: Normal affect - Skin Skin Temperature: Warm Skin Moisture: Dry Skin Color: Normal Skin irregularity: Erythema Location of irregularity: Extremities - Right leg from mid lower leg to mid thigh Irregularity with: Swelling, Warmth Course - Re-evaluation Re-evalutation: 06/23/19 00:21 This 33-year-old male presents emergency department post arthroscopy Monday for prepatellar bursitis done by Dr. Champion. He reports he is taking clindamycin and Cipro was placed on that on . He reports yesterday his knee started swelling increased redness warmth pain. Denies fever vomiting diarrhea. He has not followed up with Dr. Champion yet. I consulted Dr. Shabazz for admission for cellulitis.. He admitted the patient after review of chart. Patient was instructed on admission. 06/22/19 22:10 06/22/19 22:10 MCV 92 fl (80-97) 06/22/19 22:10 MCH 30.5 pg (27.0-33.4) 06/22/19 22:10 MCHC 33.2 g/dL (32.0-36.0) 06/22/19 22:10 RDW 13.2 % (11.5-14.0) 06/22/19 22:10 Seg Neutrophils % 72.9 % (42-78) 06/22/19 22:10 Chloride 101 mmol/L (98-107) 06/22/19 22:10 Carbon Dioxide 29 mmol/L (22-30) 06/22/19 22:10 Anion Gap 10 (5-19) 06/22/19 22:10 Est GFR ( Amer) > 60 (>60) 06/22/19 22:10 Glucose 85 mg/dL (75-110) 06/22/19 22:10 Calcium 9.0 mg/dL (8.4-10.2) 06/22/19 22:10 Total Bilirubin 0.7 mg/dL (0.2-1.3) 06/22/19 22:10 AST 21 U/L (17-59) 06/22/19 22:10 Alkaline Phosphatase 85 U/L (38-126) 06/22/19 22:10 Total Protein 6.5 g/dL (6.3-8.2) 06/22/19 22:10 Albumin 3.5 g/dL (3.5-5.0) 06/22/19 22:10 Urine Color YELLOW 06/23/19 00:00 Urine Appearance CLEAR 06/23/19 00:00 Urine pH 7.0 (5.0-9.0) 06/23/19 00:00 Ur Specific [place] 1.011 06/23/19 00:00 Urine Protein NEGATIVE mg/dL (NEGATIVE) 06/23/19 00:00 Urine Glucose (UA) NEGATIVE mg/dL (NEGATIVE) 06/23/19 00:00 Urine Ketones NEGATIVE mg/dL (NEGATIVE) 06/23/19 00:00 Urine Blood NEGATIVE (NEGATIVE) 06/23/19 00:00 Urine Nitrite NEGATIVE (NEGATIVE) 06/23/19 00:00 Ur Leukocyte Esterase NEGATIVE (NEGATIVE) 06/23/19 00:00 Urine WBC (Auto) 1 /HPF 06/23/19 00:00 Urine RBC (Auto) 2 /HPF 06/23/19 00:00 Knee X-Ray 06/22/19 21:48 IMPRESSION: No acute fracture is identified. Soft tissue swelling anteriorly with minimal fluid in the suprapatellar joint space - Vital Signs Vital signs: Temp Pulse Resp BP Pulse Ox 99.1 F 80 16 108/58 L 99 06/23/19 02:32 06/23/19 02:32 06/22/19 21:35 06/23/19 02:32 06/23/19 02:32 - Laboratory Result Diagrams: 06/22/19 22:10 06/22/19 22:10 Laboratory results interpreted by me: 06/22/19 06/22/19 06/23/19 22:10 22:10 00:00 WBC 11.8 H RBC 3.75 L Hgb 11.4 L Hct 34.5 L Absolute Neuts (auto) 8.6 H Potassium 3.5 L Urine Urobilinogen 4.0 H - Diagnostic Test Radiology reviewed: Image reviewed, Reports reviewed Discharge - Discharge Clinical Impression: Cellulitis Qualifiers: Site of cellulitis: extremity Site of cellulitis of extremity: lower extremity Laterality: right Qualified Code(s): L03.115 - Cellulitis of right lower limb Condition: Stable Disposition: ADMITTED INPATIENT Admitting Provider: Roderick (Hospitalist) Unit Admitted: Medical Floor
--- NOTE | 2019-06-22 23:31 | RADIOLOGY REPORT (SQ) ---
EXAM DESCRIPTION: XR KNEE 4 OR MORE VIEWS COMPLETED DATE/TME: 06/22/2019 21:48 CLINICAL HISTORY: 33 years Male red swelling and Pain increase COMPARISON: None. TECHNIQUE: Right knee, four views FINDINGS: No acute fractures or dislocations are identified. No osseous destructive lesions. Trace joint effusion is noted. Soft tissue swelling anteriorly. IMPRESSION: No acute fracture is identified. Soft tissue swelling anteriorly with minimal fluid in the suprapatellar joint space
[2019-06-23 00:15] LABS: APPEARANCE,URINE CLEAR; BILIRUBIN,URINE NEGATIVE (NEGATIVE); COLOR,URINE YELLOW; GLUCOSE, URINE NEGATIVE (NEGATIVE); KETONES,URINE NEGATIVE (NEGATIVE); LEUKOCYTE ESTERASE,URINE NEGATIVE (NEGATIVE); NITRITE,URINE NEGATIVE (NEGATIVE); PROTEIN,URINE NEGATIVE (NEGATIVE); URINE SPECIFIC GRAVITY 1.011
[2019-06-23] MEDS ORDERED: VANCOMYCIN HCL INJ 1000 MG VIAL IV ONE (00:24)
[2019-06-23] MEDS ORDERED: PIPERACILLIN/TAZOBACTAM 2.25 GM VIAL IV ONE (00:25)
[2019-06-23] MEDS ORDERED: ONDANSETRON HCL INJ/PF 4 MG/2 ML SDV IV PRN (01:01)
[2019-06-23] MEDS ORDERED: MAG HYDROX/AL HYDROX/SIMETH SUSP 30 ML UDCUP PO PRN (01:01)
[2019-06-23] MEDS ORDERED: ONDANSETRON 4 MG TAB.RAPDIS PO PRN (01:01)
[2019-06-23] MEDS ORDERED: MAGNESIUM HYDROXIDE SUSP 30 ML UDCUP PO PRN (01:01)
[2019-06-23] MEDS ORDERED: NICOTINE 21 MG/24 HR PATCH.TD24 TD PRN (01:10)
[2019-06-23] MEDS ORDERED: NALBUPHINE HCL INJ 10 MG/1 ML AMPULE IV PRN ×2 (01:10→01:53)
[2019-06-23] MEDS: NALBUPHINE HCL INJ 10 MG/1 ML AMPULE IV PRN ×5 (03:08→21:44)
--- NOTE | 2019-06-23 03:20 | PDOC H&P ---
History of Present Illness Admission Date/PCP: 06/23/2019 00:53 Mahesh Champion MD Patient complains of: Painful right knee History of Present Illness: EMILY NAVAS is a 33 year old male who presented to the emergency room with a 1 day history of right knee pain. Patient admits that he underwent a total bursectomy of his right knee on 06/19/2019, performed by Dr. Champion. After the surgery he was treated with oral antibiotics utilizing Cipro and clindamycin due to a penicillin allergy. Patient's wound culture from surgery was positive for group A streptococcus. His postoperative course was unremarkable until the evening of 06/21/2019 when he noticed increasing pain, swelling and redness in the right knee area. The pain, swelling and redness gradually increased and he noticed streaks of redness going down to his ankle and up to his groin where he has noticed painful nodules under the skin. The pain is a throbbing pressure of moderately severe intensity, constant in the right lower extremity without radiation. The pain is made worse by weightbearing or movement of the knee. He admits a similar pain with the acute suppurative prepatellar bursitis that he was diagnosed with on 06/19/2019. He has not identified any additional aggravating or ameliorating factors for his right knee pain. In the emergency room he was found to have a white blood count of 11,800 and a potassium of 3.5. Because of his increasing clinical symptoms he was admitted to the hospital for further evaluation and treatment with a consultation for Dr. Champion to evaluate his postoperative infection Past Medical History Cardiac Medical History: Denies: Atrial Fibrillation, Coronary Artery Disease, DVT, Hyperlipidema, Hypertension, Pulmonary Embolism Pulmonary Medical History: Denies: Asthma, Chronic Obstructive Pulmonary Disease (COPD) EENT Medical History: Denies: Cataracts, Ears - Hearing aids, Nose - Allergic rhinitis Neurological Medical History: Denies: Migraine, Seizures Endocrine Medical History: Denies: Diabetes Mellitus Type 1, Diabetes Mellitus Type 2, Hyperthyroidism, Hypothyroidism, Obesity Renal/ Medical History: Denies: Chronic Kidney Disease, Nephrolithiasis Malignancy Medical History: Reports: None GI Medical History: Denies: Cirrhosis, Gastroesophageal Reflux Disease, Hepatitis, Peptic Ulcer Disease Musculoskeltal Medical History: Denies: Arthritis, Fibromyalgia, Gout Skin Medical History: Denies: Eczema, Psoriasis Psychiatric Medical History: Reports: Tobacco Dependency Denies: Alcohol Dependency, Substance Abuse Traumatic Medical History: Reports: None Hematology: Denies: Anemia, Bleeding Tendencies Infectious Medical History: Reports: None Past Surgical History Past Surgical History: Reports: Orthopedic Surgery - Hand surgery, recent right prepatellar suppurative bursitis, Other - Several insertions of PE tubes Social History Information Source: Patient Lives with: Alone Smoking Status: Current Every Day Smoker Electronic Cigarette use?: No Frequency of Alcohol Use: None - No alcohol use for more than 3 years Hx Recreational Drug Use: Yes - None for more than 2 years Drugs: Marijuana Hx Prescription Drug Abuse: No - Advance Directive Resuscitation Status: Full Code Surrogate healthcare decision maker:: Miesha Navas Family History Family History: Hypertension - Maternal grandmother. denies: CAD, DM, Malignancy Parental Family History Reviewed: Yes Children Family History Reviewed: No Sibling(s) Family History Reviewed.: Yes Medication/Allergy Home Medications: No Home Medications 06/19/19 Allergies/Adverse Reactions: amoxicillin trihydrate [From Augmentin] Allergy (Verified 03/23/15 00:27) Potassium Clavulanate * [From Augmentin] Allergy (Verified 03/23/15 00:27) Review of Systems Constitutional: ABSENT: chills, fever(s) Eyes: ABSENT: visual disturbances, other - Eye pain Ears: ABSENT: hearing changes, other - Ear pain Nose, Mouth, and Throat: ABSENT: headache(s), mouth pain Cardiovascular: ABSENT: chest pain, palpitations Respiratory: ABSENT: cough, dyspnea Gastrointestinal: ABSENT: abdominal pain, constipation, diarrhea, nausea, vomi ting Genitourinary: ABSENT: dysuria, hematuria Musculoskeletal: PRESENT: joint swelling - Swelling, pain and erythema of right knee region. ABSENT: back pain, muscle weakness Integumentary: PRESENT: as per HPI, erythema - Erythema of the right knee region and erythematous streaking up to the right thigh to the groin.. ABSENT: pruritus, rash Neurological: ABSENT: confusion, convulsions, focal weakness, memory loss, syncope Psychiatric: ABSENT: anxiety, depression Endocrine: ABSENT: cold intolerance, heat intolerance Hematologic/Lymphatic: PRESENT: as per HPI, lymphadenopathy. ABSENT: easy bleeding, easy bruising Allergic/Immunologic: ABSENT: seasonal rhinorrhea Physical Exam Vital Signs: Temp Pulse Resp BP Pulse Ox 98.5 F 99 16 132/107 H 100 06/22/19 21:35 06/22/19 21:35 06/22/19 21:35 06/22/19 21:35 06/22/19 21:35 Intake & Output 06/21/19 06/22/19 06/23/19 23:59 23:59 23:59 Intake Total 1000 Balance 1000 Weight 59.874 kg General appearance: PRESENT: cooperative, mild distress - Secondary to right knee pain Head exam: PRESENT: atraumatic, normocephalic Eye exam: PRESENT: conjunctiva pink. ABSENT: conjunctival injection, scleral icterus Ear exam: PRESENT: normal external ear exam. ABSENT: bleeding, drainage Mouth exam: PRESENT: dry mucosa, neck supple Neck exam: ABSENT: thyromegaly, tracheal deviation Respiratory exam: PRESENT: clear to auscultation toby, symmetrical, unlabored Cardiovascular exam: PRESENT: RRR. ABSENT: clicks, gallop, rubs Pulses: PRESENT: normal radial pulses, normal dorsalis pedis pul Vascular exam: PRESENT: normal capillary refill. ABSENT: pallor GI/Abdominal exam: PRESENT: normal bowel sounds, soft Rectal exam: PRESENT: deferred Extremities exam: PRESENT: tenderness - Right knee with erythema, edema, increa sed warmth and exquisite tenderness on palpation., other - Lymphangitis noted in the right lower extremity from the knee to the groin with palpable tender right inguinal lymphadenopathy. Musculoskeletal exam: ABSENT: deformity, dislocation Neurological exam: PRESENT: alert, oriented to person, oriented to place, oriented to time, oriented to situation, CN II-XII grossly intact. ABSENT: motor sensory deficit Psychiatric exam: PRESENT: appropriate affect, normal mood Skin exam: PRESENT: erythema - Erythema, increased warmth, edema and marked tenderness in the right prepatellar region extending down to the ankle and ascending with lymphangitis to the groin.. ABSENT: jaundice, rash, urticaria Results Laboratory Results: 06/22/19 22:10 06/22/19 22:10 06/22/19 06/22/19 06/23/19 22:10 22:10 00:00 WBC 11.8 H RBC 3.75 L Hgb 11.4 L Hct 34.5 L MCV 92 MCH 30.5 MCHC 33.2 RDW 13.2 Plt Count 344 Seg Neutrophils % 72.9 Sodium 140.0 Potassium 3.5 L Chloride 101 Carbon Dioxide 29 Anion Gap 10 BUN 10 Creatinine 0.84 Est GFR ( Amer) > 60 Glucose 85 Calcium 9.0 Total Bilirubin 0.7 AST 21 Alkaline Phosphatase 85 Total Protein 6.5 Albumin 3.5 Urine Color YELLOW Urine Appearance CLEAR Urine pH 7.0 Ur Specific [place] 1.011 Urine Protein NEGATIVE Urine Glucose (UA) NEGATIVE Urine Ketones NEGATIVE Urine Blood NEGATIVE Urine Nitrite NEGATIVE Ur Leukocyte Esterase NEGATIVE Urine WBC (Auto) 1 Urine RBC (Auto) 2 Impressions: Knee X-Ray 06/22/19 21:48 IMPRESSION: No acute fracture is identified. Soft tissue swelling anteriorly with minimal fluid in the suprapatellar joint space Assessment and Plan - Diagnosis (1) Postoperative infection Qualifiers: Encounter type: initial encounter Postoperative infection type: unspecified type Qualified Code(s): T81.40XA - Infection following a procedure, unspecified, initial encounter Is this a current diagnosis for this admission?: Yes (2) Prepatellar bursitis of right knee Is this a current diagnosis for this admission?: Yes (3) Hypokalemia Is this a current diagnosis for this admission?: Yes (4) Leukocytosis Qualifiers: Leukocytosis type: unspecified Qualified Code(s): D72.829 - Elevated white blood cell count, unspecified Is this a current diagnosis for this admission?: Yes (5) Tobacco use disorder, severe, dependence Is this a current diagnosis for this admission?: Yes - Plan Summary Summary: Patient will be admitted observation status and IV antibiotic therapy will be initiated with vancomycin and cefepime. Dr. Champion will be consulted to evaluate the patient's postoperative infection and take over the ongoing care and management post discharge. Patient will receive Nubain 5 to 10 mg IV every 3 hours on an as needed basis using a sliding scale for pain. Patient's status will be followed with a CBC and a metabolic profile. Routine supportive and symptomatic cares will be given. A nicotine replacement patch will be available for the patient's use, if desired. Smoking cessation is advised and counseled briefly at the bedside. - Time Time Spent with patient: 25-34 minutes Smoking Cessation Education: 3 to 10 minutes Medications reviewed and adjusted accordingly: Yes Anticipated discharge: Home - Inpatient Certification Based on my medical assessment, after consideration of the patient's comorbidities, presenting symptoms, or acuity I expect that the services needed warrant INPATIENT care.: No I certify that my determination is in accordance with my understanding of Medicare's requirements for reasonable and necessary INPATIENT services [42 CFR 412.3e].: No Medical Necessity: Failure to Improve With Outpatient Therapy, Need for Pain Control, Need for IV Antibiotics
[2019-06-23] MEDS: HEPARIN SOD (PORCINE) 5,000 UNIT/ML 1 ML VIAL SUBCUT SCH ×3 (06:02→21:38)
[2019-06-23] MEDS: FAMOTIDINE 20 MG TABLET PO SCH ×2 (09:22→21:39)
[2019-06-23] MEDS: CEFEPIME 1 GM/D5W RTU 1 GM/50 ML RTUPB IV SCH ×2 (09:24→21:37)
[2019-06-23] MEDS: DOCUSATE SODIUM 100 MG CAPSULE PO SCH ×2 (09:26→17:17)
[2019-06-23] MEDS ORDERED: VANCOMYCIN HCL INJ 1000 MG VIAL IV SCH (10:00)
--- NOTE | 2019-06-23 14:08 | PDOC PROGRESS REPORT ---
Subjective Subjective:: 33 year old male who presented to the emergency room with a 1 day history of right knee pain. Patient admits that he underwent a total bursectomy of his right knee on 06/19/2019, performed by Dr. Champion. After the surgery he was treated with oral antibiotics utilizing Cipro and clindamycin due to a penicillin allergy. Patient's wound culture from surgery was positive for group A streptococcus. His postoperative course was unremarkable until the evening of 06/21/2019 when he noticed increasing pain, swelling and redness in the right knee area. The pain, swelling and redness gradually increased and he noticed streaks of redness going down to his ankle and up to his groin where he has noticed painful nodules under the skin. The pain is a throbbing pressure of moderately severe intensity, constant in the right lower extremity without radiation. The pain is made worse by weightbearing or movement of the knee. He admits a similar pain with the acute suppurative prepatellar bursitis that he was diagnosed with on 06/19/2019. He has not identified any additional aggravating or ameliorating factors for his right knee pain. In the emergency room he was found to have a white blood count of 11,800 and a potassium of 3.5. Because of his increasing clinical symptoms he was admitted to the hospital for further evaluation and treatment with a consultation for Dr. Champion to evaluate his postoperative infection [id number]-old male came in with 1 day history of right knee pain. He has incision and drainage of the right knee bursa area was done on Monday. He is on Cipro and clindamycin as an outpatient. Came in with worsening pain swelling redness. I spoke to Dr. Champion is going to see the patient today. Reason For Visit: POSTOPERATIVE WOUND INFECTION Physical Exam Vital Signs: Temp Pulse Resp BP Pulse Ox 99.0 F 88 16 130/61 H 98 06/23/19 03:19 06/23/19 03:19 06/23/19 03:19 06/23/19 03:19 06/23/19 03:19 Intake & Output 06/22/19 06/23/19 06/24/19 06:59 06:59 06:59 Intake Total 1000 436 Output Total 250 400 Balance 750 36 Weight 59.8 kg General appearance: PRESENT: no acute distress, thin Head exam: PRESENT: atraumatic Eye exam: PRESENT: PERRLA Mouth exam: PRESENT: moist, tongue midline Teeth exam: PRESENT: poor dentation Neck exam: ABSENT: carotid bruit, JVD, lymphadenopathy, thyromegaly Respiratory exam: PRESENT: decreased breath sounds Cardiovascular exam: PRESENT: RRR. ABSENT: diastolic murmur, rubs, systolic murmur GI/Abdominal exam: PRESENT: normal bowel sounds, soft. ABSENT: distended, guarding, mass, organolmegaly, rebound, tenderness Rectal exam: PRESENT: deferred Extremities exam: PRESENT: other - Right knee was erythematous and swollen tender to touch. Neurological exam: PRESENT: alert, awake, oriented to person, oriented to place, oriented to time, oriented to situation, CN II-XII grossly intact. ABSENT: motor sensory deficit Psychiatric exam: PRESENT: appropriate affect, normal mood. ABSENT: homicidal ideation, suicidal ideation Results Laboratory Results: 06/22/19 22:10 06/22/19 22:10 06/22/19 06/22/19 06/23/19 22:10 22:10 00:00 WBC 11.8 H RBC 3.75 L Hgb 11.4 L Hct 34.5 L MCV 92 MCH 30.5 MCHC 33.2 RDW 13.2 Plt Count 344 Seg Neutrophils % 72.9 Sodium 140.0 Potassium 3.5 L Chloride 101 Carbon Dioxide 29 Anion Gap 10 BUN 10 Creatinine 0.84 Est GFR ( Amer) > 60 Glucose 85 Calcium 9.0 Total Bilirubin 0.7 AST 21 Alkaline Phosphatase 85 Total Protein 6.5 Albumin 3.5 Urine Color YELLOW Urine Appearance CLEAR Urine pH 7.0 Ur Specific [place] 1.011 Urine Protein NEGATIVE Urine Glucose (UA) NEGATIVE Urine Ketones NEGATIVE Urine Blood NEGATIVE Urine Nitrite NEGATIVE Ur Leukocyte Esterase NEGATIVE Urine WBC (Auto) 1 Urine RBC (Auto) 2 Impressions: Knee X-Ray 06/22/19 21:48 IMPRESSION: No acute fracture is identified. Soft tissue swelling anteriorly with minimal fluid in the suprapatellar joint space Assessment and Plan - Diagnosis (1) Leukocytosis Qualifiers: Leukocytosis type: unspecified Qualified Code(s): D72.829 - Elevated white blood cell count, unspecified Is this a current diagnosis for this admission?: Yes (2) Prepatellar bursitis of right knee Is this a current diagnosis for this admission?: Yes - Plan Summary Summary: Patient will be admitted observation status and IV antibiotic therapy will be initiated with vancomycin and cefepime. Dr. Champion will be consulted to evaluate the patient's postoperative infection and take over the ongoing care and management post discharge. Patient will receive Nubain 5 to 10 mg IV every 3 hours on an as needed basis using a sliding scale for pain. Patient's status will be followed with a CBC and a metabolic profile. Routine supportive and symptomatic cares will be given. A nicotine replacement patch will be available for the patient's use, if desired. Smoking cessation is advised and counseled briefly at the bedside. 1.cellulitis And admitted with cellulitis around the right knee started on IV vancomycin and cefepime. Dr. Champion was consulted. Is going to come and see the patient today. Admission CBC 11.6. Cultures are pending previous culture shows group B streptococcus. He is supposed to be on Clinda and Cipro at home plan since insisted he is taking those medications at home. 2.leukocytosis WBC count is 11,800. Most likely secondary to cellulitis around the right knee. 3.tobacco abuse Patient is a chronic daily as per day smoker started on nicotine patch.
--- NOTE | 2019-06-23 15:50 | PDOC CONSULTATION ---
Consultation Consult Date: 06/23/19 Provider Consulted: SHANICE TEIXEIRA Consult reason:: Right leg cellulitis status post debridement of septic prepatellar bursitis History of Present Illness Admission Date/PCP: 06/23/19 01:44 Patient complains of: Resolving right leg cellulitis History of Present Illness: EMILY MONSIVAIS is a 33 year old male who had presented to the emergency department June 19, 2019 with an acute septic prepatellar bursitis. He was taken emergently to the operating room where he underwent arthroscopic prepatellar bursectomy and debridement with 9 L of sterile saline. He was discharged on clindamycin and ciprofloxacin. Operative cultures grew out a streptococcal bacteria which was sensitive to both clindamycin and levofloxacin. The patient states that he was doing well until last evening when he experienced worsening pain and streaking cellulitis. He was admitted overnight and has been placed on intravenous vancomycin and Zosyn. The patient states that his symptoms have significantly improved since admission. Past Medical History Cardiac Medical History: Denies: Atrial Fibrillation, Congestive Heart Failure, Coronary Artery Disease, DVT, Myocardial Infarction, Hyperlipidema, Hypertension, Peripheral Vascular Disease, Pulmonary Embolism, Heart Murmur Pulmonary Medical History: Denies: Asthma, Bronchitis, Chronic Obstructive Pulmonary Disease (COPD), Intubation, Pneumonia, Respiratory Failure, Sleep Apnea, Tuberculosis EENT Medical History: Denies: Cataracts, Ears - Hearing aids, Nose - Allergic rhinitis Neurological Medical History: Denies: Migraine, Seizures Endocrine Medical History: Denies: Diabetes Mellitus Type 1, Diabetes Mellitus Type 2, Hyperthyroidism, Hypothyroidism, Obesity Renal/ Medical History: Denies: Chronic Kidney Disease, End Stage Renal Disease, Nephrolithiasis Malignancy Medical History: Reports: None Denies: Bone Cancer, Brain Cancer, Breast Cancer, Cervical Cancer, Colorectal Cancer, Leukemia, Liver Cancer, Lung Cancer, Lymphoma, Ovarian Cancer, Pancreatic Cancer, Renal (Kidney) Cancer, Skin Cancer GI Medical History: Denies: Cirrhosis, Gastroesophageal Reflux Disease, Hepatitis, Peptic Ulcer Disease Musculoskeltal Medical History: Denies: Arthritis, Fibromyalgia, Gout Skin Medical History: Denies: Eczema, Psoriasis Psychiatric Medical History: Reports: Tobacco Dependency Denies: Alcohol Dependency, Substance Abuse Traumatic Medical History: Reports: None Hematology: Denies: Anemia, Hemophilia, Sickle Cell Disease, Bleeding Tendencies, Heparin Induced Thrombocytopenia, Neutropenia Infectious Medical History: Reports: None Denies: Clostridium Difficile, HIV, Methicillin-Resistant Staph Aureus, Vancomycin-Resistant Enterococci Past Surgical History Past Surgical History: Reports: Orthopedic Surgery - Hand surgery, recent right prepatellar suppurative bursitis, Other - Several insertions of PE tubes Social History Lives with: Alone Smoking Status: Current Every Day Smoker Electronic Cigarette use?: No Frequency of Alcohol Use: None - No alcohol use for more than 3 years Hx Recreational Drug Use: Yes - None for more than 2 years Drugs: Marijuana Hx Prescription Drug Abuse: No - Advance Directive Resuscitation Status: Full Code Family History Family History: Hypertension - Maternal grandmother. denies: CAD, DM, Malignancy Parental Family History Reviewed: Yes Children Family History Reviewed: Yes Sibling(s) Family History Reviewed.: Yes Medication/Allergy Home Medications: No Home Medications 06/23/19 Allergies/Adverse Reactions: amoxicillin trihydrate [From Augmentin] Allergy (Verified 03/23/15 00:27) Potassium Clavulanate * [From Augmentin] Allergy (Verified 03/23/15 00:27) Review of Systems Constitutional: ABSENT: chills, fever(s), headache(s), weight gain, weight loss Eyes: ABSENT: as per HPI, visual disturbances, other Ears: ABSENT: as per HPI, hearing changes, other Nose, Mouth, and Throat: ABSENT: as per HPI, headache(s), mouth pain, sore throat, vertigo, other Cardiovascular: ABSENT: chest pain, dyspnea on exertion, edema, orthropnea, palpitations Respiratory: ABSENT: cough, hemoptysis Gastrointestinal: ABSENT: abdominal pain, constipation, diarrhea, hematemesis, hematochezia, nausea, vomiting Genitourinary: ABSENT: dysuria, hematuria Musculoskeletal: PRESENT: other - There is a resolving cellulitis of the right leg. Integumentary: ABSENT: rash, wounds Neurological: ABSENT: abnormal gait, abnormal speech, confusion, dizziness, focal weakness, syncope Psychiatric: ABSENT: anxiety, depression, homidical ideation, suicidal ideation Endocrine: ABSENT: cold intolerance, heat intolerance, polydipsia, polyuria Hematologic/Lymphatic: ABSENT: easy bleeding, easy bruising Physical Exam Vital Signs: Temp Pulse Resp BP Pulse Ox 98.6 F 85 18 122/77 100 06/23/19 11:29 06/23/19 11:29 06/23/19 11:29 06/23/19 11:29 06/23/19 11:29 Intake & Output 06/22/19 06/23/19 06/24/19 06:59 06:59 06:59 Intake Total 1000 702 Output Total 250 625 Balance 750 77 Weight 59.8 kg General appearance: PRESENT: no acute distress, well-developed, well-nourished Head exam: PRESENT: atraumatic, normocephalic Eye exam: PRESENT: conjunctiva pink, EOMI, PERRLA. ABSENT: scleral icterus Mouth exam: PRESENT: moist, tongue midline Neck exam: ABSENT: carotid bruit, JVD, lymphadenopathy, thyromegaly Respiratory exam: PRESENT: clear to auscultation toby. ABSENT: rales, rhonchi, wheezes Cardiovascular exam: PRESENT: RRR. ABSENT: diastolic murmur, rubs, systolic murmur Pulses: PRESENT: normal dorsalis pedis pul GI/Abdominal exam: PRESENT: normal bowel sounds, soft. ABSENT: distended, guarding, mass, organolmegaly, rebound, tenderness Rectal exam: PRESENT: deferred Extremities exam: PRESENT: other - There is a resolving cellulitis of the right lower extremity. There is no erythema of the tibia. There is some warmth and erythema of the distal thigh. There is no significant fluid collection of the prepatellar bursa. Both arthroscopic portals were opened at the bedside with a sterile mosquito clamp. There was no purulence and minimal serosanguineous fluid was expressed. The patient has full active range of motion of his knee. Sensation is intact to touch. 2+ posterior tibial and dorsalis pedis pulses. Neurological exam: PRESENT: alert, awake, oriented to person, oriented to place, oriented to time, oriented to situation, CN II-XII grossly intact. ABSENT: motor sensory deficit Results Laboratory Results: 06/22/19 22:10 06/22/19 22:10 06/22/19 06/22/19 06/23/19 22:10 22:10 00:00 WBC 11.8 H RBC 3.75 L Hgb 11.4 L Hct 34.5 L MCV 92 MCH 30.5 MCHC 33.2 RDW 13.2 Plt Count 344 Seg Neutrophils % 72.9 Sodium 140.0 Potassium 3.5 L Chloride 101 Carbon Dioxide 29 Anion Gap 10 BUN 10 Creatinine 0.84 Est GFR ( Amer) > 60 Glucose 85 Calcium 9.0 Total Bilirubin 0.7 AST 21 Alkaline Phosphatase 85 Total Protein 6.5 Albumin 3.5 Urine Color YELLOW Urine Appearance CLEAR Urine pH 7.0 Ur Specific [place] 1.011 Urine Protein NEGATIVE Urine Glucose (UA) NEGATIVE Urine Ketones NEGATIVE Urine Blood NEGATIVE Urine Nitrite NEGATIVE Ur Leukocyte Esterase NEGATIVE Urine WBC (Auto) 1 Urine RBC (Auto) 2 Impressions: Knee X-Ray 06/22/19 21:48 IMPRESSION: No acute fracture is identified. Soft tissue swelling anteriorly with minimal fluid in the suprapatellar joint space Assessment & Plan - Diagnosis (1) Cellulitis Qualifiers: Site of cellulitis: extremity Site of cellulitis of extremity: lower extremity Laterality: right Qualified Code(s): L03.115 - Cellulitis of right lower limb Is this a current diagnosis for this admission?: Yes - Time Time Spent: 30 to 50 Minutes Anticipated discharge: Home Within: within 48 hours - Plan Summary Plan Summary: The patient is a pleasant 33-year-old treated for a septic prepatellar bursitis last week with arthroscopic debridement. He was admitted overnight with a cellulitis of the right leg. The patient has shown dramatic improvement on intravenous antibiotics. The patient's white blood cell count was elevated on admission but significantly lower than on June 20 prior to his surgical debridement. The arthroscopic portals were opened at the bedside and there is no significance re-collection of fluid or abscess which requires surgical decompression. This appears to be a cellulitis representing a failure of oral antibiotics. I would recommend continued intravenous antibiotics until complete resolution of symptoms. As his septic bursitis did present an atypical bacterial isolate, I would consider consultation with an infectious disease specialist for recommendations for outpatient treatment following resolution of symptoms. Moreover he has already demonstrated a failure with oral antibiotic treatment using antibiotics to which his cultures demonstrate the organism should be susceptible.
[2019-06-23] MEDS: VANCOMYCIN HCL 1,000 MG in DEXTROSE 5%-WATER 250 ML IV SCH (17:21)
[2019-06-23] MEDS: IBUPROFEN 800 MG TABLET PO PRN (17:30)
[2019-06-24] MEDS: VANCOMYCIN HCL 1,000 MG in DEXTROSE 5%-WATER 250 ML IV SCH ×2 (05:15→17:29)
[2019-06-24] MEDS: HEPARIN SOD (PORCINE) 5,000 UNIT/ML 1 ML VIAL SUBCUT SCH ×3 (05:15→21:35)
[2019-06-24 05:26] LABS: HEMATOCRIT 33.5 % (37.9-51.0); HEMOGLOBIN 11.2 g/dL (13.5-17.0); MEAN CORPUSCULAR HEMOGLOBIN 30.7 pg (27.0-33.4); MEAN CORPUSCULAR HGB CONC 33.6 g/dL (32.0-36.0); MEAN CORPUSCULAR VOLUME 92 fl (80-97); PLATELET COUNT 381 10^3/uL (150-450); RED BLOOD COUNT 3.66 10^6/uL (4.35-5.55); RED CELL DISTRIBUTION WIDTH 12.9 % (11.5-14.0)
[2019-06-24 05:49] LABS: ANION GAP 7 (5-19); BLOOD UREA NITROGEN 9 mg/dL (7-20); CALCIUM 8.8 mg/dL (8.4-10.2); CARBON DIOXIDE 28 mmol/L (22-30); CHLORIDE 108 mmol/L (98-107); GLUCOSE 109 mg/dL (75-110)
[2019-06-24] MEDS ORDERED: INFLUENZA QUAD (6MOS+) 2019-20 VAC 0.5 ML SYR IM ONE (08:00)
[2019-06-24] MEDS: FAMOTIDINE 20 MG TABLET PO SCH ×2 (09:41→21:33)
[2019-06-24] MEDS: DOCUSATE SODIUM 100 MG CAPSULE PO SCH ×2 (09:41→17:40)
[2019-06-24] MEDS: CEFEPIME 1 GM/D5W RTU 1 GM/50 ML RTUPB IV SCH ×2 (09:42→21:33)
--- NOTE | 2019-06-24 10:30 | PDOC PROGRESS REPORT ---
Subjective Progress Note for:: 06/24/19 Subjective:: 33 year old male who presented to the emergency room with a 1 day history of right knee pain. Patient admits that he underwent a total bursectomy of his right knee on 06/19/2019, performed by Dr. Champion. After the surgery he was treated with oral antibiotics utilizing Cipro and clindamycin due to a penicillin allergy. Patient's wound culture from surgery was positive for group A streptococcus. His postoperative course was unremarkable until the evening of 06/21/2019 when he noticed increasing pain, swelling and redness in the right knee area. The pain, swelling and redness gradually increased and he noticed streaks of redness going down to his ankle and up to his groin where he has noticed painful nodules under the skin. The pain is a throbbing pressure of moderately severe intensity, constant in the right lower extremity without radiation. The pain is made worse by weightbearing or movement of the knee. He admits a similar pain with the acute suppurative prepatellar bursitis that he was diagnosed with on 06/19/2019. He has not identified any additional aggravating or ameliorating factors for his right knee pain. In the emergency room he was found to have a white blood count of 11,800 and a potassium of 3.5. Because of his increasing clinical symptoms he was admitted to the hospital for further evaluation and treatment with a consultation for Dr. Champion to evaluate his postoperative infection [id number]-ebde-old male came in with 1 day history of right knee pain. He has incision and drainage of the right knee bursa area was done on Monday. He is on Cipro and clindamycin as an outpatient. Came in with worsening pain swelling redness. I spoke to Dr. Champion is going to see the patient today. 06/24/2019-patient came in with complaints of right knee swelling redness and pain. He also came in with fevers. Consultation with Dr. Arreguin was done recommendation is to continue IV antibiotic therapy. Patient is presently on IV cefepime and vancomycin. Cultures are negative so far. Patient is comfortably in the bed communicating well denies any problems. Reason For Visit: POSTOPERATIVE WOUND INFECTION Physical Exam Vital Signs: Temp Pulse Resp BP Pulse Ox 98.5 F 75 16 101/57 L 100 06/24/19 08:00 06/24/19 08:00 06/24/19 08:00 06/24/19 08:00 06/24/19 08:00 Intake & Output 06/23/19 06/24/19 06/25/19 06:59 06:59 06:59 Intake Total 1000 1262 300 Output Total 250 925 Balance 750 337 300 Weight 59.8 kg 54 kg General appearance: PRESENT: no acute distress Head exam: PRESENT: atraumatic Eye exam: PRESENT: PERRLA Mouth exam: PRESENT: dry mucosa Teeth exam: PRESENT: poor dentation Neck exam: ABSENT: carotid bruit, JVD, lymphadenopathy, thyromegaly Respiratory exam: PRESENT: decreased breath sounds Cardiovascular exam: PRESENT: RRR. ABSENT: diastolic murmur, rubs, systolic murmur GI/Abdominal exam: PRESENT: normal bowel sounds, soft. ABSENT: distended, gu arding, mass, organolmegaly, rebound, tenderness Rectal exam: PRESENT: deferred Extremities exam: PRESENT: other - Right knee is still swollen and erythematous. Neurological exam: PRESENT: alert Psychiatric exam: PRESENT: appropriate affect, normal mood. ABSENT: homicidal ideation, suicidal ideation Results Laboratory Results: 06/24/19 04:54 06/24/19 04:54 06/24/19 06/24/19 04:54 04:54 WBC 9.0 RBC 3.66 L Hgb 11.2 L Hct 33.5 L MCV 92 MCH 30.7 MCHC 33.6 RDW 12.9 Plt Count 381 Sodium 143.2 Potassium 4.0 Chloride 108 H Carbon Dioxide 28 Anion Gap 7 BUN 9 Creatinine 0.68 Est GFR ( Amer) > 60 Glucose 109 Calcium 8.8 Impressions: Knee X-Ray 06/22/19 21:48 IMPRESSION: No acute fracture is identified. Soft tissue swelling anteriorly with minimal fluid in the suprapatellar joint space Assessment and Plan - Diagnosis (1) Leukocytosis Qualifiers: Leukocytosis type: unspecified Qualified Code(s): D72.829 - Elevated white blood cell count, unspecified Is this a current diagnosis for this admission?: Yes (2) Prepatellar bursitis of right knee Is this a current diagnosis for this admission?: Yes - Plan Summary Summary: Patient will be admitted observation status and IV antibiotic therapy will be initiated with vancomycin and cefepime. Dr. Champion will be consulted to evaluate the patient's postoperative infection and take over the ongoing care and management post discharge. Patient will receive Nubain 5 to 10 mg IV every 3 hours on an as needed basis using a sliding scale for pain. Patient's status will be followed with a CBC and a metabolic profile. Routine supportive and symptomatic cares will be given. A nicotine replacement patch will be available for the patient's use, if desired. Smoking cessation is advised and counseled briefly at the bedside. 1.cellulitis And admitted with cellulitis around the right knee started on IV vancomycin and cefepime. Dr. Champion was consulted. Is going to come and see the patient today. Admission CBC 11.6. Cultures are pending previous culture shows group B streptococcus. He is supposed to be on Clinda and Cipro at home plan since insisted he is taking those medications at home. 06/24/2019-patient admitted with cellulitis around the right knee cultures are negative so far. On cefepime and vancomycin. T-max is 98.2. Ortho on board. 2.leukocytosis WBC count is 11,800. Most likely secondary to cellulitis around the right knee. 06/24/2019-patient WBC count is 9000 on admission it is 11,800 leukocytosis is r esolved. 3.tobacco abuse Patient is a chronic daily as per day smoker started on nicotine patch.
[2019-06-24] MEDS: ACETAMINOPHEN 325 MG TABLET PO PRN (17:38)
[2019-06-25] MEDS: VANCOMYCIN HCL 1,000 MG in DEXTROSE 5%-WATER 250 ML IV SCH ×3 (05:09→19:29)
[2019-06-25] MEDS: HEPARIN SOD (PORCINE) 5,000 UNIT/ML 1 ML VIAL SUBCUT SCH ×3 (05:14→21:48)
[2019-06-25 07:07] LABS: ABSOLUTE EOSINOPHILS # (AUTO) 0.2 10^3/uL (0.0-0.6); ABSOLUTE LYMPHOCYTES (AUTO) 1.7 10^3/uL (0.5-4.7); ABSOLUTE MONOCYTES (AUTO) 0.9 10^3/uL (0.1-1.4); ABSOLUTE NEUT (AUTO) 5.5 10^3/uL (1.7-8.2); BASOPHILS % (AUTO) 0.5 % (0-2); EOSINOPHILS % (AUTO) 2.7 % (0-6); HEMATOCRIT 31.7 % (37.9-51.0); HEMOGLOBIN 10.9 g/dL (13.5-17.0); MEAN CORPUSCULAR HEMOGLOBIN 30.9 pg (27.0-33.4); MEAN CORPUSCULAR HGB CONC 34.2 g/dL (32.0-36.0); MEAN CORPUSCULAR VOLUME 91 fl (80-97); MONOCYTES % (AUTO) 10.2 % (3-13); PLATELET COUNT 459 10^3/uL (150-450); RED BLOOD COUNT 3.51 10^6/uL (4.35-5.55); RED CELL DISTRIBUTION WIDTH 12.9 % (11.5-14.0); SEGMENTED NEUTROPHILS % (AUTO) 66.6 % (42-78); TOTAL CELLS COUNTED % (AUTO) 100 %; WHITE BLOOD COUNT 8.3 10^3/uL (4.0-10.5)
[2019-06-25 07:24] LABS: ALBUMIN 3.1 g/dL (3.5-5.0); ALKALINE PHOSPHATASE 60 U/L (38-126); ANION GAP 8 (5-19); ASPARTATE AMINO TRANSFERASE 14 U/L (17-59); BILIRUBIN,DIRECT 0.2 mg/dL (0.0-0.4); BILIRUBIN,TOTAL 0.3 mg/dL (0.2-1.3); BLOOD UREA NITROGEN 11 mg/dL (7-20); CALCIUM 8.8 mg/dL (8.4-10.2); CARBON DIOXIDE 29 mmol/L (22-30); CHLORIDE 105 mmol/L (98-107); GLUCOSE 124 mg/dL (75-110); POTASSIUM 4.3 mmol/L (3.6-5.0)
[2019-06-25 07:29] LABS: VANCOMYCIN,TROUGH 33.6 ug/mL (5.0-20.0)
[2019-06-25] MEDS: CEFEPIME 1 GM/D5W RTU 1 GM/50 ML RTUPB IV SCH ×2 (09:30→21:49)
[2019-06-25] MEDS: FAMOTIDINE 20 MG TABLET PO SCH ×2 (09:31→21:49)
[2019-06-25] MEDS: DOCUSATE SODIUM 100 MG CAPSULE PO SCH ×2 (09:45→17:30)
[2019-06-25] MEDS: ACETAMINOPHEN 325 MG TABLET PO PRN ×2 (17:28→23:24)
[2019-06-25 18:19] LABS: VANCOMYCIN,TROUGH < 5.0 ug/mL (5.0-20.0)
--- NOTE | 2019-06-25 18:56 | PDOC PROGRESS REPORT ---
Subjective Progress Note for:: 06/25/19 Subjective:: No acute event overnight. The erythema and tenderness on the knee and areas around the right knee continue to recede. He says the pain continues to improve and he is now able to bend his right knee better and he is now ambulating better. Reason For Visit: P/O WOUND INFECTION Physical Exam Vital Signs: Temp Pulse Resp BP Pulse Ox 98.2 F 66 17 118/54 L 99 06/25/19 15:41 06/25/19 15:41 06/25/19 15:41 06/25/19 15:41 06/25/19 15:41 Intake & Output 06/24/19 06/25/19 06/26/19 06:59 06:59 06:59 Intake Total 1262 1830 762 Output Total 925 500 Balance 337 1330 762 Weight 119 lb 0.794 oz 119 lb 7.849 oz General appearance: PRESENT: no acute distress, well-developed, well-nourished Head exam: PRESENT: atraumatic, normocephalic Eye exam: PRESENT: conjunctiva pink, EOMI, PERRLA. ABSENT: scleral icterus Ear exam: PRESENT: normal external ear exam Mouth exam: PRESENT: moist, tongue midline Neck exam: ABSENT: carotid bruit, JVD, lymphadenopathy, thyromegaly Respiratory exam: PRESENT: clear to auscultation toby. ABSENT: rales, rhonchi, wheezes Cardiovascular exam: PRESENT: RRR. ABSENT: diastolic murmur, rubs, systolic murmur Pulses: PRESENT: normal dorsalis pedis pul GI/Abdominal exam: PRESENT: normal bowel sounds, soft. ABSENT: distended, guarding, mass, organolmegaly, rebound, tenderness Rectal exam: PRESENT: deferred Extremities exam: PRESENT: other - The erythema and tenderness on the knee and areas around the right knee continue to recede. Neurological exam: PRESENT: alert, awake, oriented to person, oriented to place, oriented to time, oriented to situation, CN II-XII grossly intact. ABSENT: motor sensory deficit Results Laboratory Results: 06/25/19 06:11 06/25/19 06:11 06/25/19 06/25/19 06:11 06:11 WBC 8.3 RBC 3.51 L Hgb 10.9 L Hct 31.7 L MCV 91 MCH 30.9 MCHC 34.2 RDW 12.9 Plt Count 459 H Seg Neutrophils % 66.6 Sodium 141.5 Potassium 4.3 Chloride 105 Carbon Dioxide 29 Anion Gap 8 BUN 11 Creatinine 0.77 Est GFR ( Amer) > 60 Glucose 124 H Calcium 8.8 Magnesium 2.3 Total Bilirubin 0.3 AST 14 L Alkaline Phosphatase 60 Total Protein 6.0 L Albumin 3.1 L Impressions: Knee X-Ray 06/22/19 21:48 IMPRESSION: No acute fracture is identified. Soft tissue swelling anteriorly with minimal fluid in the suprapatellar joint space Assessment and Plan - Diagnosis (1) Septic infrapatellar bursitis of right knee Is this a current diagnosis for this admission?: Yes Plan: Continue IV activities. Await final recommendations from ID prior to discharge. - Time Time Spent with patient: 15-24 minutes
[2019-06-25] MEDS: IBUPROFEN 800 MG TABLET PO PRN (19:36)
[2019-06-25] MEDS: VANCOMYCIN HCL 500 MG in DEXTROSE 5%-WATER 100 ML IV SCH (19:38)
[2019-06-25] MEDS: ZOLPIDEM TARTRATE 5 MG TABLET PO PRN (23:24)
[2019-06-26] MEDS: VANCOMYCIN HCL 500 MG in DEXTROSE 5%-WATER 100 ML IV SCH ×3 (02:10→18:04)
[2019-06-26] MEDS: HEPARIN SOD (PORCINE) 5,000 UNIT/ML 1 ML VIAL SUBCUT SCH ×3 (05:25→21:06)
[2019-06-26] MEDS: CEFEPIME 1 GM/D5W RTU 1 GM/50 ML RTUPB IV SCH ×2 (10:13→21:56)
[2019-06-26] MEDS: DOCUSATE SODIUM 100 MG CAPSULE PO SCH ×2 (10:14→18:38)
[2019-06-26] MEDS: FAMOTIDINE 20 MG TABLET PO SCH ×2 (10:14→21:08)
--- NOTE | 2019-06-26 14:43 | Progress Note ---
Provider Note Provider Note: [facility] Ant[facility]ward[facility] Consultation HPI Chart reviewed. This is a 33 year-old man who was recently presenting right knee pain and had a total bursectomy on 06/19. He was sent home on clindamycin and ciprofloxacin. Bursa cultures were positive for GAS. On 06/21, patient started presenting severe pain in his right knee, swelling and redness as well. He was admitted on 06/23 and started on Iv antibiotics vancomycin and cefepime (not sure if he received zosyn as there is an amoxicillin allergy). His symptoms significantly improved. Per notes, redness has resolved and he is able to ambulate. Blood cultures on 06/19 negative. ID consulted for antibiotic re commendations and duration of therapy. Allergies: amoxicillin trihydrate [From Augmentin] Allergy (Verified 03/23/15 00:27) Potassium Clavulanate * [From Augmentin] Allergy (Verified 03/23/15 00:27) Medications: Acetaminophen (Tylenol 325 Mg Tablet) 650 mg PO Q4HP PRN Famotidine (Pepcid 20 Mg Tablet) 20 mg PO Q12 ZEB Heparin Sodium (Porcine) (Heparin Inj 5,000 Units/Ml 1 Ml Vial) 5,000 unit SUBCUT Q8 ZEB Cefepime HCl (Maxipime Rtu 1 Gm/D5w 50 Ml Premix Bag) 1 gm in 50 mls @ 100 mls/hr IV Q12 ZEB Vancomycin HCl 500 mg/ (Dextrose) 100 mls @ 66.667 mls/hr IV Q8A ZEB Ibuprofen (Motrin 800 Mg Tablet) 800 mg PO Q6HP PRN Nalbuphine HCl (Nubain Inj 10 Mg/1 Ml Ampule) 5 mg IV Q3HP PRN Nalbuphine HCl (Nubain Inj 10 Mg/1 Ml Ampule) 10 mg IV Q3HP PRN Sodium Chloride (Saline Flush 2.5 Ml Monoject Prefil Syrin) 2.5 ml IV Q8 ZEB Zolpidem Tartrate (Ambien 5 Mg Tablet) 5 mg PO HSP PRN Vital Signs: Temp Pulse Resp BP Pulse Ox 98.4 F 74 17 121/59 L 100 06/26/19 10:46 06/26/19 10:46 06/26/19 10:46 06/26/19 10:46 06/26/19 10:46 Intake & Output 06/25/19 06/26/19 06/27/19 06:59 06:59 06:59 Intake Total 1830 2594 150 Output Total 500 Balance 1330 2594 150 Weight 54.2 kg 53.7 kg Weight/Height Weight 53.7 kg Height 5 ft 8 in Laboratories: 06/25/19 06:11 06/25/19 06:11 MCV 91 fl (80-97) 06/25/19 06:11 MCH 30.9 pg (27.0-33.4) 06/25/19 06:11 MCHC 34.2 g/dL (32.0-36.0) 06/25/19 06:11 RDW 12.9 % (11.5-14.0) 06/25/19 06:11 Seg Neutrophils % 66.6 % (42-78) 06/25/19 06:11 Chloride 105 mmol/L (98-107) 06/25/19 06:11 Carbon Dioxide 29 mmol/L (22-30) 06/25/19 06:11 Anion Gap 8 (5-19) 06/25/19 06:11 Est GFR ( Amer) > 60 (>60) 06/25/19 06:11 Glucose 124 mg/dL (75-110) H 06/25/19 06:11 Calcium 8.8 mg/dL (8.4-10.2) 06/25/19 06:11 Magnesium 2.3 mg/dL (1.6-2.3) 06/25/19 06:11 Total Bilirubin 0.3 mg/dL (0.2-1.3) 06/25/19 06:11 AST 14 U/L (17-59) L 06/25/19 06:11 Alkaline Phosphatase 60 U/L (38-126) 06/25/19 06:11 Total Protein 6.0 g/dL (6.3-8.2) L 06/25/19 06:11 Albumin 3.1 g/dL (3.5-5.0) L 06/25/19 06:11 Urine Color YELLOW 06/23/19 00:00 Urine Appearance CLEAR 06/23/19 00:00 Urine pH 7.0 (5.0-9.0) 06/23/19 00:00 Ur Specific [place] 1.011 06/23/19 00:00 Urine Protein NEGATIVE mg/dL (NEGATIVE) 06/23/19 00:00 Urine Glucose (UA) NEGATIVE mg/dL (NEGATIVE) 06/23/19 00:00 Urine Ketones NEGATIVE mg/dL (NEGATIVE) 06/23/19 00:00 Urine Blood NEGATIVE (NEGATIVE) 06/23/19 00:00 Urine Nitrite NEGATIVE (NEGATIVE) 06/23/19 00:00 Ur Leukocyte Esterase NEGATIVE (NEGATIVE) 06/23/19 00:00 Urine WBC (Auto) 1 /HPF 06/23/19 00:00 Urine RBC (Auto) 2 /HPF 06/23/19 00:00 Microbiology: 06/23/19 00:55 Blood Blood Culture - Final Staphylococcus Xylosus 06/19/2019 Synovial Fluid - STREPTOCOCCUS PYOGENES Radiology: Knee X-Ray 06/22/19 21:48 IMPRESSION: No acute fracture is identified. Soft tissue swelling anteriorly with minimal fluid in the suprapatellar joint space Assessment and Recommendations: Patient evaluated for right knee bursitis due to GAS s/p total bursectomy that failed outpatient antibiotic therapy. He has been doing well since started on vancomycin and cefepime. He is clinically doing better and blood cultures were negative. [place] treatment for this would be a dicloxacillin as step down, but allergy to amoxicillin noted in the chart. He has received 3 days of antibiotics. A total of 14 days would be recommended. Linezolid 600 mg po bid has excellent bioavailability and can be considered for 11 more days. He has tolerated cephalosporins, cephalexin 500 mg every 6 hr is an alternative, although bioavailability not as good as penicillins or linezolid. EOT will be 07/07/19. CoNS in the blood more likely a skin contaminant. Please call if questions. Cassie House MD [facility] Infectious Disease [phone]
--- NOTE | 2019-06-26 16:31 | PDOC PROGRESS REPORT ---
Subjective Progress Note for:: 06/26/19 Subjective:: 06/25: The erythema and tenderness on the knee and areas around the right knee continue to recede. He says the pain continues to improve and he is now able to bend his right knee better and he is now ambulating better. 06/26: No acute event overnight. The redness and tenderness continue to improve. No fever or chills. Reason For Visit: P/O WOUND INFECTION Physical Exam Vital Signs: Temp Pulse Resp BP Pulse Ox 98.4 F 74 17 121/59 L 100 06/26/19 10:46 06/26/19 10:46 06/26/19 10:46 06/26/19 10:46 06/26/19 10:46 Intake & Output 06/25/19 06/26/19 06/27/19 06:59 06:59 06:59 Intake Total 1830 2594 150 Output Total 500 Balance 1330 2594 150 Weight 119 lb 7.849 oz 118 lb 6.212 oz General appearance: PRESENT: no acute distress, well-developed, well-nourished Head exam: PRESENT: atraumatic, normocephalic Eye exam: PRESENT: conjunctiva pink, EOMI, PERRLA. ABSENT: scleral icterus Ear exam: PRESENT: normal external ear exam Mouth exam: PRESENT: moist, tongue midline Neck exam: ABSENT: carotid bruit, JVD, lymphadenopathy, thyromegaly Respiratory exam: PRESENT: clear to auscultation toby. ABSENT: rales, rhonchi, wheezes Cardiovascular exam: PRESENT: RRR. ABSENT: diastolic murmur, rubs, systolic murmur Pulses: PRESENT: normal dorsalis pedis pul GI/Abdominal exam: PRESENT: normal bowel sounds, soft. ABSENT: distended, guarding, mass, organolmegaly, rebound, tenderness Rectal exam: PRESENT: deferred Musculoskeletal exam: PRESENT: other - Redness and tenderness continue to improve Neurological exam: PRESENT: alert, awake, oriented to person, oriented to place, oriented to time, oriented to situation, CN II-XII grossly intact. ABSENT: motor sensory deficit Results Laboratory Results: 06/25/19 06:11 06/25/19 06:11 06/23/19 00:55 Blood Blood Culture - Final Staphylococcus Xylosus Impressions: Knee X-Ray 06/22/19 21:48 IMPRESSION: No acute fracture is identified. Soft tissue swelling anteriorly with minimal fluid in the suprapatellar joint space Assessment and Plan - Diagnosis (1) Septic infrapatellar bursitis of right knee Is this a current diagnosis for this admission?: Yes Plan: Continue IV antibiotics today. Anticipate discharge in the next 24 hours. - Time Time Spent with patient: 15-24 minutes
[2019-06-26 18:51] LABS: VANCOMYCIN,TROUGH 6.8 ug/mL (5.0-20.0)
[2019-06-26] MEDS: ACETAMINOPHEN 325 MG TABLET PO PRN (21:07)
[2019-06-26] MEDS: ZOLPIDEM TARTRATE 5 MG TABLET PO PRN (21:55)
[2019-06-27] MEDS: VANCOMYCIN HCL 1,000 MG in DEXTROSE 5%-WATER 250 ML IV SCH ×2 (02:38→11:07)
[2019-06-27] MEDS: HEPARIN SOD (PORCINE) 5,000 UNIT/ML 1 ML VIAL SUBCUT SCH ×2 (05:23→13:26)
[2019-06-27] MEDS: DOCUSATE SODIUM 100 MG CAPSULE PO SCH (09:39)
[2019-06-27] MEDS: FAMOTIDINE 20 MG TABLET PO SCH (09:40)
[2019-06-27] MEDS: CEFEPIME 1 GM/D5W RTU 1 GM/50 ML RTUPB IV SCH (09:40)
[2019-06-27 15:02] VITALS: BP 123/65
--- NOTE | 2019-06-27 18:58 | PDOC DISCHARGE SUMMARY ---
Impression - Admit/DC Date/PCP Admission Date/Primary Care Provider: 06/25/19 16:18 Discharge Date: 06/27/19 - Discharge Diagnosis (1) Septic infrapatellar bursitis of right knee Is this a current diagnosis for this admission?: Yes - Additional Information Resuscitation Status: Full Code Discharge Diet: Regular Discharge Activity: Activity As Tolerated Referrals: SHANICE CHAMPION MD [ACTIVE PROVISIONAL STAFF] - 07/02/19 10:15 am () Prescriptions: Tramadol HCl [Ultram] 50 mg PO Q12HP PRN #10 tablet PRN Reason: For Pain Linezolid [Zyvox 600 mg Tablet] 600 mg PO Q12 10 Days #20 tablet Home Medications: Linezolid [Zyvox 600 mg Tablet] 600 mg PO Q12 10 Days #20 tablet 06/27/19 Tramadol HCl [Ultram] 50 mg PO Q12HP PRN #10 tablet 06/27/19 History of Present Illiness History of Present Illness: Admitting hospitalist's H&P: EMILY NAVAS is a 33 year old male who presented to the emergency room with a 1 day history of right knee pain. Patient admits that he underwent a total bursectomy of his right knee on 06/19/2019, performed by Dr. Champion. After the surgery he was treated with oral antibiotics utilizing Cipro and clindamycin due to a penicillin allergy. Patient's wound culture from surgery was positive for group A streptococcus. His postoperative course was unremarkable until the evening of 06/21/2019 when he noticed increasing pain, swelling and redness in the right knee area. The pain, swelling and redness gradually increased and he noticed streaks of redness going down to his ankle and up to his groin where he has noticed painful nodules under the skin. The pain is a throbbing pressure of moderately severe intensity, constant in the right lower extremity without radiation. The pain is made worse by weightbearing or movement of the knee. He admits a similar pain with the acute suppurative prepatellar bursitis that he was diagnosed with on 06/19/2019. He has not identified any additional aggravating or ameliorating factors for his right knee pain. In the emergency room he was found to have a white blood count of 11,800 and a potassium of 3.5. Because of his increasing clinical symptoms he was admitted to the hospital for further evaluation and treatment with a consultation for Dr. Champion to evaluate his postoperative infection Hospital Course Hospital Course: Mr. Navas is a 33-year-old male who recently underwent arthroscopic prepatellar bursectomy and debridement who subsequently failed oral clindamycin and ciprofloxacin. He was admitted for recurrence of the right knee septic bursitis. He was started on IV vancomycin and cefepime. He slowly but gradually improved. The tenderness and erythema in the right knee did recede frequently and on day of discharge there was minimal erythema. He was also able to mobilize his right knee better and started ambulating the hallway without assistance. ID was also consulted and recommended 10 more days of p.o. Zyvox. Patient will closely follow-up. Dr. Champion. Physical Exam Vital Signs: Temp Pulse Resp BP Pulse Ox 98.0 F 75 16 123/65 99 06/27/19 14:46 06/27/19 14:46 06/27/19 14:46 06/27/19 14:46 06/27/19 14:46 Intake & Output 06/26/19 06/27/19 06/28/19 06:59 06:59 06:59 Intake Total 2594 2260 420 Balance 2594 2260 420 Weight 118 lb 6.212 oz 117 lb 8.102 oz General appearance: PRESENT: no acute distress, well-developed, well-nourished Head exam: PRESENT: atraumatic, normocephalic Eye exam: PRESENT: conjunctiva pink, EOMI, PERRLA. ABSENT: scleral icterus Ear exam: PRESENT: normal external ear exam Mouth exam: PRESENT: moist, tongue midline Neck exam: ABSENT: carotid bruit, JVD, lymphadenopathy, thyromegaly Respiratory exam: PRESENT: clear to auscultation toby. ABSENT: rales, rhonchi, wheezes Cardiovascular exam: PRESENT: RRR. ABSENT: diastolic murmur, rubs, systolic murmur Pulses: PRESENT: normal dorsalis pedis pul GI/Abdominal exam: PRESENT: normal bowel sounds, soft. ABSENT: distended, guarding, mass, organolmegaly, rebound, tenderness Rectal exam: PRESENT: deferred Musculoskeletal exam: PRESENT: other - Minimal erythema on the right knee Neurological exam: PRESENT: alert, awake, oriented to person, oriented to place, oriented to time, oriented to situation, CN II-XII grossly intact. ABSENT: motor sensory deficit Results Laboratory Results: WBC 8.3 10^3/uL (4.0-10.5) 06/25/19 06:11 RBC 3.51 10^6/uL (4.35-5.55) L 06/25/19 06:11 Hgb 10.9 g/dL (13.5-17.0) L 06/25/19 06:11 Hct 31.7 % (37.9-51.0) L 06/25/19 06:11 MCV 91 fl (80-97) 06/25/19 06:11 MCH 30.9 pg (27.0-33.4) 06/25/19 06:11 MCHC 34.2 g/dL (32.0-36.0) 06/25/19 06:11 RDW 12.9 % (11.5-14.0) 06/25/19 06:11 Plt Count 459 10^3/uL (150-450) H 06/25/19 06:11 Lymph % (Auto) 20.0 % (13-45) 06/25/19 06:11 [place] % (Auto) 10.2 % (3-13) 06/25/19 06:11 Eos % (Auto) 2.7 % (0-6) 06/25/19 06:11 Baso % (Auto) 0.5 % (0-2) 06/25/19 06:11 Absolute Neuts (auto) 5.5 10^3/uL (1.7-8.2) 06/25/19 06:11 Absolute Lymphs (auto) 1.7 10^3/uL (0.5-4.7) 06/25/19 06:11 Absolute Monos (auto) 0.9 10^3/uL (0.1-1.4) 06/25/19 06:11 Absolute Eos (auto) 0.2 10^3/uL (0.0-0.6) 06/25/19 06:11 Absolute Basos (auto) 0.0 10^3/uL (0.0-0.2) 06/25/19 06:11 Seg Neutrophils % 66.6 % (42-78) 06/25/19 06:11 Sodium 141.5 mmol/L (137-145) 06/25/19 06:11 Potassium 4.3 mmol/L (3.6-5.0) 06/25/19 06:11 Chloride 105 mmol/L (98-107) 06/25/19 06:11 Carbon Dioxide 29 mmol/L (22-30) 06/25/19 06:11 Anion Gap 8 (5-19) 06/25/19 06:11 BUN 11 mg/dL (7-20) 06/25/19 06:11 Creatinine 0.77 mg/dL (0.52-1.25) 06/25/19 06:11 Est GFR ( Amer) > 60 (>60) 06/25/19 06:11 Est GFR (MDRD) Non-Af > 60 (>60) 06/25/19 06:11 Glucose 124 mg/dL (75-110) H 06/25/19 06:11 Calcium 8.8 mg/dL (8.4-10.2) 06/25/19 06:11 Magnesium 2.3 mg/dL (1.6-2.3) 06/25/19 06:11 Total Bilirubin 0.3 mg/dL (0.2-1.3) 06/25/19 06:11 Direct Bilirubin 0.2 mg/dL (0.0-0.4) 06/25/19 06:11 Neonat Total Bilirubin Not Reportable 06/25/19 06:11 Neonat Direct Bilirubin Not Reportable 06/25/19 06:11 Neonat Indirect Bili Not Reportable 06/25/19 06:11 AST 14 U/L (17-59) L 06/25/19 06:11 ALT 24 U/L (<50) 06/25/19 06:11 Alkaline Phosphatase 60 U/L (38-126) 06/25/19 06:11 Total Protein 6.0 g/dL (6.3-8.2) L 06/25/19 06:11 Albumin 3.1 g/dL (3.5-5.0) L 06/25/19 06:11 Urine Color YELLOW 06/23/19 00:00 Urine Appearance CLEAR 06/23/19 00:00 Urine pH 7.0 (5.0-9.0) 06/23/19 00:00 Ur Specific [place] 1.011 06/23/19 00:00 Urine Protein NEGATIVE mg/dL (NEGATIVE) 06/23/19 00:00 Urine Glucose (UA) NEGATIVE mg/dL (NEGATIVE) 06/23/19 00:00 Urine Ketones NEGATIVE mg/dL (NEGATIVE) 06/23/19 00:00 Urine Blood NEGATIVE (NEGATIVE) 06/23/19 00:00 Urine Nitrite NEGATIVE (NEGATIVE) 06/23/19 00:00 Urine Bilirubin NEGATIVE (NEGATIVE) 06/23/19 00:00 Urine Urobilinogen 4.0 mg/dL (<2.0) H 06/23/19 00:00 Ur Leukocyte Esterase NEGATIVE (NEGATIVE) 06/23/19 00:00 Urine WBC (Auto) 1 /HPF 06/23/19 00:00 Urine RBC (Auto) 2 /HPF 06/23/19 00:00 Urine Mucus (Auto) RARE /LPF 06/23/19 00:00 Urine Ascorbic Acid NEGATIVE (NEGATIVE) 06/23/19 00:00 Time Trough Drawn 1755 06/26/19 17:55 Vancomycin Trough 6.8 ug/mL (5.0-20.0) 06/26/19 17:55 Impressions: Knee X-Ray 06/22/19 21:48 IMPRESSION: No acute fracture is identified. Soft tissue swelling anteriorly with minimal fluid in the suprapatellar joint space Stroke Is this a Stroke Patient?: No Acute Heart Failure - Is this a Heart Failure Patient?: No
== END 2019-06-27 16:07 | disposition home or self-care (01) | DRG 863 ==
LOC: ER 21:31 → EH 06-23 01:44 → INTOOBSV 06-23 01:44 → 4S 06-23 02:45 → OBSVTOIN 06-25 16:18
PROVIDERS: ADMIT Emergency Medicine; ATTEND Emergency Medicine
PROC: 3E0234Z Introduction of Serum, Toxoid and Vaccine into Muscle, Percutaneous Approach (ICD-10-PCS; principal; 2019-06-27)
DX: T81.40XA Infection following a procedure, unspecified, initial encounter (principal); L03.115 Cellulitis of right lower limb; M70.41 Prepatellar bursitis, right knee; E87.6 Hypokalemia; D72.829 Elevated white blood cell count, unspecified; M25.561 Pain in right knee; B95.0 Streptococcus, group A, as the cause of diseases classified elsewhere; F17.210 Nicotine dependence, cigarettes, uncomplicated; Z23 Encounter for immunization
CPT/HCPCS: 36415; 80048; 80053; 80202; 81001; 83735; 85025; 85027; 87040; 87077; 87186; 90686; 96361; 96365; 96375; 99284; G0378; J0692; J1644; J2300; J2543; J3370; J3490; J7030; J7060